=== PATIENT | female | born 1985 | race Caucasian/White ===

== ENCOUNTER 2016-06-04 18:32 | Emergency (ER) | payer OTHER ==
[2016-06-04 18:37] VITALS: BP 129/72; PULSE 104; RESP 16; TEMP 97.5
[2016-06-04] MEDS ORDERED: MORPHINE SULFATE 10 MG/ML SYRINGE IM STA (18:55)
--- NOTE | 2016-06-04 19:00 | ED ---
Fall HPI - General Chief Complaint: Fall Stated Complaint: FALL, BACK INJURY Time Seen by Provider: 06/04/16 18:45 Source: patient, RN notes reviewed Mode of arrival: ambulatory - History of Present Illness Initial Comments: Patient is a 30-year-old female presents to the emergency room for evaluation of low back pain. Patient states she got out of bed this morning and accidentally fell landing on her low back. Patient states she has a history of chronic low back pain. Patient states she usually takes [place], baclofen 800 mg ibuprofen for pain. Patient states she is having increased back pain after the fall. Patient states pain is more on her left side that radiates down her left leg. Patient denies numbness or tingling in her foot. Patient denies saddle anesthesia. Patient denies urinary or fecal incontinence. Patient states her at home pain medications are not helping. Patient denies any other injuries during incident. Patient denies head trauma, loss consciousness, neck pain. Patient states pain is worse when she is lying flat or standing up. - Related Data Home Medications Medication Instructions Recorded Confirmed Baclofen [Lioresal] 5 mg PO TID PRN 06/04/16 06/04/16 HYDROcodone/APAP 5-325MG [[place] 1 tab PO TID PRN 06/04/16 06/04/16 5-325] Ibuprofen [Motrin] 800 mg PO TID PRN 06/04/16 06/04/16 Allergies Allergy/AdvReac Type Severity Reaction Status Date / Time No Known Allergies Allergy Verified 06/04/16 18:55 Review of Systems ROS Statement: Those systems with pertinent positive or pertinent negative responses have been documented in the HPI. ROS Other: All systems not noted in ROS Statement are negative. Past Medical History Past Medical History: No Reported History Additional Past Medical History / Comment(s): Back Pain History of Any Multi-Drug Resistant Organisms: None Reported Past Surgical History: Section, Tubal Ligation Past Psychological History: No Psychological Hx Reported Smoking Status: Current every day smoker Past Alcohol Use History: Occasional Past Drug Use History: None Reported General Exam - General Exam Comments Initial Comments: Sitting on exam bed in no acute distress. Limitations: no limitations General appearance: alert, in no apparent distress Head exam: Present: atraumatic, normocephalic, normal inspection Eye exam: Present: normal appearance ENT exam: Present: normal exam Neck exam: Present: normal inspection Respiratory exam: Present: normal lung sounds bilaterally. Absent: respiratory distress Cardiovascular Exam: Present: regular rate, normal rhythm, normal heart sounds Back exam: Present: paraspinal tenderness (Left lumbosacral), vertebral tenderness (Lumbosacral) Neurological exam: Present: alert, oriented X3, CN II-XII intact Psychiatric exam: Present: normal affect, normal mood Skin exam: Present: warm, dry, intact, normal color. Absent: rash Course Vital Signs 06/04/16 18:34 Temperature 97.5 F L Pulse Rate 104 H Respiratory 16 Rate Blood Pressure 129/72 O2 Sat by Pulse 100 Oximetry Medical Decision Making - Medical Decision Making Patient is a 30-year-old female presents to the emergency room for evaluation of low back pain after fall. Lumbosacral x-ray shows no acute findings. Patient was given medication here for pain. Patient can continue taking at home pain medications as needed. Advised patient to follow-up with her supervisor paint roller covers if symptoms are not improving. Patient states she has an MRI scheduled for 06/12/16. Patient states she understands everything that was discussed with her. Return parameters discussed. Case discussed with Dr. Wilkins. - Radiology Data Radiology results: report reviewed, image reviewed Disposition Clinical Impression: Fall, Acute exacerbation of chronic low back pain Disposition: HOME SELF-CARE Condition: Good Instructions: Acute Low Back Pain (ED) Additional Instructions: Continue taking at home pain medications as needed. Please follow-up with supervisor paint roller covers for reevaluation in 24-48 hours. Warm moist heat. If any new symptom arises or symptoms worsen, return to ER as soon as possible. Referrals: Caroline Servin MD [Primary Care Provider] - 1-2 days Time of Disposition: 19:29
--- NOTE | 2016-06-04 19:16 | XR ---
EXAMINATION TYPE: XR lumbosacral spine min 4V DATE OF EXAM: 06/04/2016 7:04 PM COMPARISON: 02/22/2016 HISTORY: Chronic low back pain. Fall. TECHNIQUE: 5 views FINDINGS: The lumbar vertebra have normal alignment. There is slight narrowing of L5-S1 disc space. T here is a rudimentary S1-S2 disc. Sacroiliac joints are normal. Posterior elements are intact. IMPRESSION: No fracture. Minimal disc space narrowing at L5-S1. No change.
== END 2016-06-04 19:43 | disposition home or self-care (01) ==
LOC: EC 18:32
DX: M54.5 Low back pain (principal); G89.29 Other chronic pain; W06.XXXA Fall from bed, initial encounter; F17.200 Nicotine dependence, unspecified, uncomplicated
CPT/HCPCS: 99284; 96372; 72110; J2270

== ENCOUNTER → 2016-06-12 | Outpatient (CLI) | payer OTHER ==
--- NOTE | 2016-06-12 07:50 | MR ---
EXAMINATION TYPE: MR lumbar spine wo con DATE OF EXAM: 06/12/2016 7:16 AM COMPARISON: NONE HISTORY: Low back pain CONTRAST: 0 mL intravenous . TECHNIQUE: Multiplanar, multisequence images of the lumbar spine were acquired. FINDINGS: For purposes of this examination the lowest disc levels labeled L5-S1. L5-S1: There is loss of disc height to this level. There is no residual disc bulge or focal disc sunil iation. No spinal canal stenosis. No foraminal stenosis. . L4-L5: There is a very large left paracentral left lateral disc herniation. This is displacing and co mpressing the exiting left L5 nerve root. Correlate with radicular symptoms. This has some extension into the inferior most foramen near the orifice. No contact with the exiting nerve root within the fo ramen is evident. There is some displacement of the thecal sac towards the right. AP spinal canal st enosis is not present. The right exiting nerve root appears normal without contact or displacement. N eural foramen are patent.. L3-L4: No significant disc bulge or disc herniation. No spinal canal stenosis. No foraminal stenosi s. Mild facet hypertrophy is present.. L2-L3: No significant disc bulge or disc herniation. No spinal canal stenosis. No foraminal stenosi s. . L1-L2: No significant disc bulge or disc herniation. No spinal canal stenosis. No foraminal stenosi s. . T12-L1: No significant disc bulge or disc herniation. No spinal canal stenosis. No foraminal stenos is. . Cord terminates at the L1 level. Previous disc bulge has significantly increased over the interval. IMPRESSION: 1. There is been interval formation of a large L4-L5 disc herniation into the left paracentral canal displacing and compressing the exiting L5 nerve root. Some displacement of the thecal sac towards the right is evident.
== END | disposition home or self-care (01) ==
LOC: RADMRIMAIN 06:41
PROVIDERS: ATTEND Psychiatry & Neurology Pain Medicine
DX: M51.26 Other intervertebral disc displacement, lumbar region (principal)
CPT/HCPCS: 72148

== ENCOUNTER 2016-08-29 23:20 | Emergency (ER) | payer OTHER ==
[2016-08-30] MEDS ORDERED: ONDANSETRON 4 MG/2 ML VIAL IVP STA (00:13)
[2016-08-30] MEDS ORDERED: SODIUM CHLORIDE 0.9% 500 ML IV STA (00:13)
[2016-08-30] MEDS ORDERED: HYDROmorphone 1 MG/ML 1 ML SYRINGE IVP STA ×2 (00:13→00:45)
--- NOTE | 2016-08-30 00:19 | ED ---
Abdominal Pain HPI - General Chief Complaint: Abdominal Pain Stated Complaint: flank & abdominal pain Time Seen by Provider: 08/30/16 00:09 Source: patient Mode of arrival: ambulatory Limitations: no limitations - History of Present Illness Initial Comments: 30-year-old female patient presents to emergency department today for complaints of right lower quadrant abdominal pain. Patient states it started today around noon. Patient describes the pain as an intense pressure. She denies any radiation to her back. She is nauseated but not has not had any vomiting. She denies any known fever or chills. Denies any hematuria, dysuria , urinary urgency or urinary frequency. Denies any constipation, diarrhea, weakness, or dizziness. She did undergo a lumbar laminectomy 2 weeks ago. Patient has had tubal ligation denies any chance of . She reports a history of ovarian cysts and states pain feels similar to when she had that in the past. - Related Data Home Medications Medication Instructions Recorded Confirmed Baclofen [Lioresal] 10 mg PO TID PRN 06/04/16 08/29/16 HYDROcodone/APAP 5-325MG [[place] 1 tab PO TID PRN 06/04/16 08/29/16 5-325] Previous Rx's Medication Instructions Recorded Ondansetron Odt [Zofran Odt] 4 mg PO Q8HR PRN #10 tab 08/30/16 Allergies Allergy/AdvReac Type Severity Reaction Status Date / Time No Known Allergies Allergy Verified 08/29/16 23:43 Review of Systems ROS Statement: Those systems with pertinent positive or pertinent negative responses have been documented in the HPI. ROS Other: All systems not noted in ROS Statement are negative. Past Medical History Past Medical History: No Reported History Additional Past Medical History / Comment(s): Back Pain History of Any Multi-Drug Resistant Organisms: None Reported Past Surgical History: Back Surgery, Section, Tubal Ligation Past Psychological History: No Psychological Hx Reported Smoking Status: Current every day smoker Past Alcohol Use History: Occasional Past Drug Use History: None Reported General Exam Limitations: no limitations General appearance: alert, in no apparent distress Head exam: Present: atraumatic, normocephalic, normal inspection Eye exam: Present: normal appearance, PERRL, EOMI. Absent: scleral icterus, conjunctival injection, periorbital swelling ENT exam: Present: normal exam, normal oropharynx, mucous membranes moist Respiratory exam: Present: normal lung sounds bilaterally. Absent: respiratory distress, wheezes, rales, rhonchi, stridor Cardiovascular Exam: Present: normal rhythm, tachycardia, normal heart sounds. Absent: systolic murmur, diastolic murmur, rubs, gallop, clicks GI/Abdominal exam: Present: soft, tenderness (Mild right upper quadrant tenderness. Moderate right lower quadrant tenderness.), normal bowel sounds. Absent: distended, guarding, rebound, rigid Back exam: Present: normal inspection, CVA tenderness (R), other (Lumbar incision is healing, well approximated without any redness, drainage, or swelling.). Absent: CVA tenderness (L) Neurological exam: Present: alert, oriented X3, CN II-XII intact Psychiatric exam: Present: normal affect, normal mood Skin exam: Present: warm, dry, intact, normal color. Absent: rash Course Vital Signs 08/29/16 23:36 Temperature 99 F Pulse Rate 104 H Respiratory 22 Rate Blood Pressure 134/84 O2 Sat by Pulse 97 Oximetry - Reevaluation(s) Reevaluation #1: 08/30/16 00:44 Reevaluated the patient at this time. She states pain did lessen with the pain medication but is now starting to return. Patient remains tender to the right lower quadrant. In light of her recent surgery and tenderness we will do a computed tomography scan at this time. Patient will be given additional dose of pain medication. Medical Decision Making - Medical Decision Making 30-year-old female patient presented to emergency department today for complaints of right lower quadrant abdominal pain. Labs and urinalysis are unremarkable. CT of the abdomen and pelvis did not show any acute abnormalities. At this time patient be discharged home to continue home pain medications. She is instructed to follow-up with her primary care physician or ENGINE REPAIR SUPERVISOR in one to 2 days for recheck. Patient instructed to return for any new, worsening, or concerning symptoms. - Lab Data Result diagrams: 08/30/16 00:10 08/30/16 00:10 Lab Results 08/29/16 08/30/16 08/30/16 Range/Units 23:45 00:10 00:10 WBC 10.2 (3.8-10.6) k/uL RBC 4.31 (3.80-5.40) m/uL Hgb 14.3 (11.4-16.0) gm/dL Hct 43.4 (34.0-46.0) % MCV 100.9 H (80.0-100.0) fL MCH 33.2 (25.0-35.0) pg MCHC 32.9 (31.0-37.0) g/dL RDW 14.0 (11.5-15.5) % Plt Count 299 (150-450) k/uL Neutrophils % 72 % Lymphocytes % 18 % Monocytes % 4 % Eosinophils % 4 % Basophils % 1 % Neutrophils # 7.4 (1.3-7.7) k/uL Lymphocytes # 1.8 (1.0-4.8) k/uL Monocytes # 0.4 (0-1.0) k/uL Eosinophils # 0.4 (0-0.7) k/uL Basophils # 0.1 (0-0.2) k/uL Macrocytosis Slight Sodium 140 (137-145) mmol/L Potassium 4.1 (3.5-5.1) mmol/L Chloride 104 (98-107) mmol/L Carbon Dioxide 26 (22-30) mmol/L Anion Gap 10 mmol/L BUN 10 (7-17) mg/dL Creatinine 0.65 (0.52-1.04) mg/dL Est GFR (MDRD) Af Amer >60 (>60 ml/min/1.73 sqM) Est GFR (MDRD) Non-Af >60 (>60 ml/min/1.73 sqM) Glucose 109 H (74-99) mg/dL Calcium 9.2 (8.4-10.2) mg/dL Total Bilirubin 0.4 (0.2-1.3) mg/dL AST 19 (14-36) U/L ALT 24 (9-52) U/L Alkaline Phosphatase 110 (38-126) U/L Total Protein 6.7 (6.3-8.2) g/dL Albumin 4.0 (3.5-5.0) g/dL Amylase 68 (30-110) U/L Lipase 96 (23-300) U/L Urine Color Dark Yellow Urine Appearance Cloudy H (Clear) Urine pH 6.0 (5.0-8.0) Ur Specific [place] 1.026 (1.001-1.035) Urine Protein Trace H (Negative) Urine Glucose (UA) Negative (Negative) Urine Ketones Trace H (Negative) Urine Blood Negative (Negative) Urine Nitrite Negative (Negative) Urine Bilirubin Negative (Negative) Urine Urobilinogen 3.0 (<2.0) mg/dL Ur Leukocyte Esterase Negative (Negative) Urine RBC 1 (0-5) /hpf Urine WBC 1 (0-5) /hpf Ur Squamous Epith Cells 8 H (0-4) /hpf Urine Mucus Moderate H (None) /hpf - Radiology Data Radiology results: report reviewed CT of the abdomen and pelvis with contrast impression shows no acute abnormalities. Disposition Clinical Impression: Abdominal pain Disposition: HOME SELF-CARE Condition: Stable Instructions: Abdominal Pain (ED) Additional Instructions: Take pain medication as directed. Follow-up with primary care physician or OB/ [facility] in one to 2 days for recheck. Return for any new, worsening, or concerning symptoms. Prescriptions: Ondansetron Odt [Zofran Odt] 4 mg PO Q8HR PRN #10 tab PRN Reason: Nausea Referrals: Caroline Servin MD [Primary Care Provider] - 1-2 days Time of Disposition: 01:33
[2016-08-30 00:25] LABS: Basophils # (A) 0.1 k/uL (0-0.2); Basophils % (A) 1 %; CH 33.5; CHCM 33.4; Eosinophils # (A) 0.4 k/uL (0-0.7); Eosinophils % (A) 4 %; HCT 43.4 % (34.0-46.0); HDW 2.89; HGB 14.3 gm/dL (11.4-16.0); Luc # (Auto) 0.21; Luc % (Auto) 2; Lymphocytes # (A) 1.8 k/uL (1.0-4.8); Lymphocytes % (A) 18 %; MCH 33.2 pg (25.0-35.0); MCHC 32.9 g/dL (31.0-37.0); MCV 100.9 fL (80.0-100.0); Macrocytosis Slight; Mean Platelet Volume 7.1; Monocytes # (A) 0.4 k/uL (0-1.0); Monocytes % (A) 4 %; Neutrophils # (A) 7.4 k/uL (1.3-7.7); Neutrophils % (A) 72 %; RBC 4.31 m/uL (3.80-5.40); WBC 10.2 k/uL (3.8-10.6); WBC (Perox) 10.01
[2016-08-30 00:26] LABS: Appearance,Urine Cloudy (Clear); Bilirubin,Urine Negative (Negative); Glucose,Urine (UA) Negative (Negative); Ketones,Urine Trace (Negative); Leukocyte Esterase,Urine Negative (Negative); Mucus,Urine Moderate /hpf; Nitrite,Urine Negative (Negative); Particle Count 8155; Protein,Urine Trace (Negative); RBC,Urine 1 /hpf (0-5); Specific Gravity,Urine 1.026 (1.001-1.035); Squamous Epithelial Cell,Urine 8 /hpf (0-4); UA Billing (MACRO vs. MICRO) MICRO; WBC,Urine 1 /hpf (0-5)
[2016-08-30 00:33] LABS: ALT 24 U/L (9-52); AST 19 U/L (14-36); Alkaline Phosphatase 110 U/L (38-126); Amylase 68 U/L (30-110); Anion Gap 10 mmol/L; Blood Urea Nitrogen 10 mg/dL (7-17); Calcium 9.2 mg/dL (8.4-10.2); Carbon Dioxide 26 mmol/L (22-30); Chloride 104 mmol/L (98-107); Glucose 109 mg/dL (74-99); Non-African American GFR(MDRD) >60 (>60 ml/min/1.73 sqM); Potassium 4.1 mmol/L (3.5-5.1); Sodium 140 mmol/L (137-145); Total Bilirubin 0.4 mg/dL (0.2-1.3); Total Protein 6.7 g/dL (6.3-8.2)
[2016-08-30] MEDS ORDERED: RX INFO: IV CONTRAST WAS GIVEN 1 EACH MISC MISCELLANE PRN (00:43)
--- NOTE | 2016-08-30 00:48 | XR ---
EXAM: XR Abdomen, 1 View. CLINICAL HISTORY: Reason: abdominal pain TECHNIQUE: Frontal supine view of the abdomen/pelvis. COMPARISON: CT abdomen/pelvis on 11/28/2015 FINDINGS: Hardware: Surgical clips in the pelvis are compatible with prior tubal ligation. Abdomen: Nonobstructive bowel gas pattern. Moderate stool throughout the colon and rectum. No free air. Bones: Normal. Soft tissues: Normal. IMPRESSION: Nonobstructive bowel gas pattern with moderate stool burden.
[2016-08-30] MEDS ORDERED: SODIUM CHLORIDE 0.9% 500 ML IV ONE (01:06)
--- NOTE | 2016-08-30 01:18 | CT ---
EXAM: CT Abdomen and Pelvis With Intravenous Contrast. CLINICAL HISTORY: Reason: Pain. history of , tubal ligation, back surgery TECHNIQUE: Axial computed tomography images of the abdomen and pelvis with intravenous contrast. CTDI is 25.90 mGy and DLP is 934.90 mGy-cm This CT exam was performed using one or more of the following dose reduction techniques: automated exposure control, adjustment of the mA and/or kV according to patient size, and/or use of iterative reconstruction technique. COMPARISON: CT abdomen/pelvis on 11/28/2015 FINDINGS: Lower thorax: Mild dependent atelectasis bilaterally. ABDOMEN: Liver: Unremarkable. No mass. Gallbladder and bile ducts: Decompressed gallbladder. No calcified stones. No ductal dilation. Pancreas: Unremarkable. No mass. No ductal dilation. Spleen: Unremarkable. No splenomegaly. Adrenals: Unremarkable. No mass. Kidneys and ureters: Unremarkable. No solid mass. No hydronephrosis. Stomach and bowel: Mild diverticulosis without evidence of diverticulitis. Hyperdensity in the stomach may represent a pill. No obstruction. Appendix: No findings to suggest acute appendicitis. PELVIS: Bladder: Underdistended bladder. Reproductive: Postsurgical changes of tubal ligation. Stable prominence of the uterine/ovarian veins. ABDOMEN and PELVIS: Intraperitoneal space: Unremarkable. No free air. No significant fluid collection. Bones/joints: No acute fracture. No dislocation. Soft tissues: Tiny fat-containing umbilical hernia. Dependent edema in the posterior soft tissues. Vasculature: See above. Lymph nodes: Unremarkable. No enlarged lymph nodes. IMPRESSION: No acute findings.
[2016-08-30 01:57] VITALS: BP 120/76; PULSE 80; RESP 18; TEMP 97.6
== END 2016-08-30 02:05 | disposition home or self-care (01) ==
LOC: EC 23:20
DX: R10.31 Right lower quadrant pain (principal); R11.0 Nausea; F17.200 Nicotine dependence, unspecified, uncomplicated; Z87.42 Personal history of other diseases of the female genital tract; Z98.51 Tubal ligation status
CPT/HCPCS: 99284; 96374; 96375; 96376; 96361 ×2; 36415; 80053; 82150; 83690; 85025; 81001; 74000; 74177; J2405; J1170; Q9967

== ENCOUNTER 2016-09-16 21:51 | Emergency (ER) | payer OTHER ==
[2016-09-16 21:59] VITALS: RESP 18
[2016-09-16] MEDS ORDERED: SODIUM CHLORIDE 0.9% 1,000 ML IV STA (22:00)
[2016-09-16] MEDS ORDERED: MORPHINE SULFATE 4 MG/ML SYRINGE IV STA (22:25)
[2016-09-16] MEDS ORDERED: KETOROLAC 30 MG/ML 1 ML VIAL IVP STA (22:25)
[2016-09-16 22:28] LABS: Appearance,Urine Clear (Clear); Basophils # (A) 0.1 k/uL (0-0.2); Basophils % (A) 1 %; Bilirubin,Urine Negative (Negative); CH 32.8; CHCM 33.8; Eosinophils # (A) 0.2 k/uL (0-0.7); Eosinophils % (A) 2 %; Glucose,Urine (UA) Negative (Negative); HCT 47.8 % (34.0-46.0); HDW 2.87; Ketones,Urine Negative (Negative); Leukocyte Esterase,Urine Negative (Negative); Luc # (Auto) 0.14; Luc % (Auto) 1; Lymphocytes # (A) 2.1 k/uL (1.0-4.8); Lymphocytes % (A) 21 %; MCH 32.7 pg (25.0-35.0); MCHC 33.5 g/dL (31.0-37.0); MCV 97.6 fL (80.0-100.0); Mean Platelet Volume 6.7; Monocytes # (A) 0.4 k/uL (0-1.0); Monocytes % (A) 4 %; Neutrophils # (A) 7.4 k/uL (1.3-7.7); Neutrophils % (A) 72 %; Nitrite,Urine Negative (Negative); Protein,Urine Negative (Negative); RDW 13.3 % (11.5-15.5); Specific Gravity,Urine 1.006 (1.001-1.035); UA Billing (MACRO vs. MICRO) CHEM; Urobilinogen,Urine <2.0 mg/dL (<2.0); WBC 10.2 k/uL (3.8-10.6); WBC (Perox) 10.13
--- NOTE | 2016-09-16 22:29 | ED ---
Abdominal Pain HPI - General Chief Complaint: Abdominal Pain Stated Complaint: Abd Pain Time Seen by Provider: 09/16/16 21:59 Source: patient Mode of arrival: ambulatory Limitations: no limitations - History of Present Illness Initial Comments: This patient is a 30-year-old woman who presents with the acute onset of abdominal pain about 1-2 hours ago while she was sitting. The patient states that it was a sensation of a rubber band snapping. She rates the pain constant , 9 out of 10, and states that there are no worsening or relieving factors. She states this feels identical to previous episodes of ovarian cyst rupturing that she had had. Patient states that the pain was so severe she initially had some nausea. She states that that has cleared up she denies any other associated symptoms. The patient does state that she had just started her menstrual cycle, which seems otherwise normal. Patient denies any previous vaginal discharge. Patient has had no vomiting or change in bowel movements. She had not noted any urinary symptoms. No associated fever or chills. No chest symptoms. No radiation of the pain distally into the legs no radiation to the back. MD Complaint: abdominal pain Onset/Timin -: hour(s) Location: RLQ Radiation: none Migration to: no migration Severity scale (1-10): 9 Quality: sharp (Like a rubber band snapping) Consistency: constant Improves With: nothing Worsens With: nothing Associated Symptoms: nausea - Related Data Home Medications Medication Instructions Recorded Confirmed Baclofen [Lioresal] 10 mg PO TID PRN 06/04/16 09/16/16 HYDROcodone/APAP 7.5-325MG [[place] 1 tab PO TID PRN 09/16/16 09/16/16 7.5-325] Previous Rx's Medication Instructions Recorded Hydrocodone/Acetaminophen [[place] 1 each PO Q6HR PRN #20 tab 09/17/16 5-325] Allergies Allergy/AdvReac Type Severity Reaction Status Date / Time No Known Allergies Allergy Verified 09/16/16 22:08 Review of Systems ROS Statement: Those systems with pertinent positive or pertinent negative responses have been documented in the HPI. ROS Other: All systems not noted in ROS Statement are negative. Constitutional: Denies: fever, chills Respiratory: Denies: cough, dyspnea Cardiovascular: Denies: chest pain, palpitations, edema, syncope Gastrointestinal: Reports: as per HPI, abdominal pain, nausea. Denies: vomiting , diarrhea, constipation, melena, hematochezia Genitourinary: Denies: dysuria, frequency, hematuria, discharge, abnormal menses Musculoskeletal: Denies: back pain Skin: Denies: rash Neurological: Denies: headache, weakness, numbness Hematological/Lymphatic: Denies: easy bleeding Past Medical History Past Medical History: No Reported History Additional Past Medical History / Comment(s): Back Pain ovarian cysts History of Any Multi-Drug Resistant Organisms: None Reported Past Surgical History: Back Surgery, Section, Tubal Ligation Past Psychological History: No Psychological Hx Reported Smoking Status: Current every day smoker Past Alcohol Use History: Occasional Past Drug Use History: None Reported General Exam Limitations: no limitations General appearance: alert, in no apparent distress Head exam: Present: atraumatic, normocephalic Eye exam: Present: normal appearance. Absent: scleral icterus, conjunctival injection ENT exam: Present: normal oropharynx Neck exam: Present: normal inspection Respiratory exam: Present: normal lung sounds bilaterally. Absent: respiratory distress, wheezes, rales, rhonchi, stridor Cardiovascular Exam: Present: regular rate, normal rhythm, normal heart sounds. Absent: systolic murmur, diastolic murmur, rubs, gallop GI/Abdominal exam: Present: soft, normal bowel sounds. Absent: distended, tenderness, guarding, rebound, rigid, mass, pulsatile mass, hernia Extremities exam: Present: normal inspection, normal capillary refill. Absent: pedal edema, calf tenderness Back exam: Present: normal inspection. Absent: CVA tenderness (R), CVA tenderness (L) Neurological exam: Present: alert Skin exam: Present: warm, dry, intact, normal color. Absent: rash Course Vital Signs 09/16/16 09/17/16 21:56 00:05 Temperature 97.5 F L 98.1 F Pulse Rate 118 H 98 Respiratory 18 18 Rate Blood Pressure 122/62 117/68 O2 Sat by Pulse 99 100 Oximetry Medical Decision Making - Lab Data Result diagrams: 09/16/16 22:15 09/16/16 22:15 Lab Results 09/16/16 09/16/16 09/16/16 Range/Units 22:15 22:15 22:15 WBC 10.2 (3.8-10.6) k/uL RBC 4.90 (3.80-5.40) m/uL Hgb 16.0 (11.4-16.0) gm/dL Hct 47.8 H (34.0-46.0) % MCV 97.6 (80.0-100.0) fL MCH 32.7 (25.0-35.0) pg MCHC 33.5 (31.0-37.0) g/dL RDW 13.3 (11.5-15.5) % Plt Count 305 (150-450) k/uL Neutrophils % 72 % Lymphocytes % 21 % Monocytes % 4 % Eosinophils % 2 % Basophils % 1 % Neutrophils # 7.4 (1.3-7.7) k/uL Lymphocytes # 2.1 (1.0-4.8) k/uL Monocytes # 0.4 (0-1.0) k/uL Eosinophils # 0.2 (0-0.7) k/uL Basophils # 0.1 (0-0.2) k/uL Sodium 140 (137-145) mmol/L Potassium 4.3 (3.5-5.1) mmol/L Chloride 106 (98-107) mmol/L Carbon Dioxide 23 (22-30) mmol/L Anion Gap 11 mmol/L BUN 7 (7-17) mg/dL Creatinine 0.60 (0.52-1.04) mg/dL Est GFR (MDRD) Af Amer >60 (>60 ml/min/1.73 sqM) Est GFR (MDRD) Non-Af >60 (>60 ml/min/1.73 sqM) Glucose 99 (74-99) mg/dL Plasma Lactic Acid Frank (0.7-2.0) mmol/L Calcium 9.5 (8.4-10.2) mg/dL Total Bilirubin 0.3 (0.2-1.3) mg/dL AST 25 (14-36) U/L ALT 32 (9-52) U/L Alkaline Phosphatase 102 (38-126) U/L Total Protein 7.1 (6.3-8.2) g/dL Albumin 4.0 (3.5-5.0) g/dL Amylase 47 (30-110) U/L Lipase 47 (23-300) U/L Urine Color Yellow Urine Appearance Clear (Clear) Urine pH 7.0 (5.0-8.0) Ur Specific [place] 1.006 (1.001-1.035) Urine Protein Negative (Negative) Urine Glucose (UA) Negative (Negative) Urine Ketones Negative (Negative) Urine Blood Negative (Negative) Urine Nitrite Negative (Negative) Urine Bilirubin Negative (Negative) Urine Urobilinogen <2.0 (<2.0) mg/dL Ur Leukocyte Esterase Negative (Negative) 09/16/16 Range/Units 22:15 WBC (3.8-10.6) k/uL RBC (3.80-5.40) m/uL Hgb (11.4-16.0) gm/dL Hct (34.0-46.0) % MCV (80.0-100.0) fL MCH (25.0-35.0) pg MCHC (31.0-37.0) g/dL RDW (11.5-15.5) % Plt Count (150-450) k/uL Neutrophils % % Lymphocytes % % Monocytes % % Eosinophils % % Basophils % % Neutrophils # (1.3-7.7) k/uL Lymphocytes # (1.0-4.8) k/uL Monocytes # (0-1.0) k/uL Eosinophils # (0-0.7) k/uL Basophils # (0-0.2) k/uL Sodium (137-145) mmol/L Potassium (3.5-5.1) mmol/L Chloride (98-107) mmol/L Carbon Dioxide (22-30) mmol/L Anion Gap mmol/L BUN (7-17) mg/dL Creatinine (0.52-1.04) mg/dL Est GFR (MDRD) Af Amer (>60 ml/min/1.73 sqM) Est GFR (MDRD) Non-Af (>60 ml/min/1.73 sqM) Glucose (74-99) mg/dL Plasma Lactic Acid [place] 1.6 (0.7-2.0) mmol/L Calcium (8.4-10.2) mg/dL Total Bilirubin (0.2-1.3) mg/dL AST (14-36) U/L ALT (9-52) U/L Alkaline Phosphatase (38-126) U/L Total Protein (6.3-8.2) g/dL Albumin (3.5-5.0) g/dL Amylase (30-110) U/L Lipase (23-300) U/L Urine Color Urine Appearance (Clear) Urine pH (5.0-8.0) Ur Specific [place] (1.001-1.035) Urine Protein (Negative) Urine Glucose (UA) (Negative) Urine Ketones (Negative) Urine Blood (Negative) Urine Nitrite (Negative) Urine Bilirubin (Negative) Urine Urobilinogen (<2.0) mg/dL Ur Leukocyte Esterase (Negative) Disposition Clinical Impression: Abdominal pain Disposition: HOME SELF-CARE Condition: Good Instructions: Abdominal Pain (ED) Prescriptions: Hydrocodone/Acetaminophen [[place] 5-325] 1 each PO Q6HR PRN #20 tab PRN Reason: Pain Referrals: Caroline Servin MD [Primary Care Provider] - 1-2 days Lora Elena DO [Doctor of Osteopathic Medicine] - 1-2 days
[2016-09-16 22:38] LABS: ALT 32 U/L (9-52); AST 25 U/L (14-36); Alkaline Phosphatase 102 U/L (38-126); Amylase 47 U/L (30-110); Anion Gap 11 mmol/L; Blood Urea Nitrogen 7 mg/dL (7-17); Calcium 9.5 mg/dL (8.4-10.2); Carbon Dioxide 23 mmol/L (22-30); Chloride 106 mmol/L (98-107); Glucose 99 mg/dL (74-99); Non-African American GFR(MDRD) >60 (>60 ml/min/1.73 sqM); Potassium 4.3 mmol/L (3.5-5.1); Sodium 140 mmol/L (137-145); Total Bilirubin 0.3 mg/dL (0.2-1.3); Total Protein 7.1 g/dL (6.3-8.2)
[2016-09-16] MEDS ORDERED: HYDROmorphone 1 MG/ML 1 ML SYRINGE IVP STA (23:39)
[2016-09-17 00:56] VITALS: BP 113/73; PULSE 87; TEMP 97.8
== END 2016-09-17 00:55 | disposition home or self-care (01) ==
LOC: EC 21:51
DX: R10.31 Right lower quadrant pain (principal); F17.200 Nicotine dependence, unspecified, uncomplicated
CPT/HCPCS: 36415; 80053; 82150; 83605; 83690; 85025; 81003; 99284; 96374; 96375 ×2; 96361; J2270; J1885; J1170

== ENCOUNTER 2016-12-03 19:56 | Emergency (ER) | payer OTHER ==
[2016-12-03 20:15] VITALS: RESP 18
[2016-12-03] MEDS ORDERED: RX INFO: IV CONTRAST WAS GIVEN 1 EACH MISC MISCELLANE PRN (20:54)
[2016-12-03] MEDS ORDERED: KETOROLAC 30 MG/ML 1 ML VIAL IVP STA (20:54)
[2016-12-03] MEDS ORDERED: ONDANSETRON 4 MG/2 ML VIAL IVP STA (20:54)
[2016-12-03] MEDS ORDERED: SODIUM CHLORIDE 0.9% 1,000 ML IV ONE (20:54)
--- NOTE | 2016-12-03 20:57 | ED ---
Abdominal Pain HPI - General Chief Complaint: Abdominal Pain Stated Complaint: Abd Pain Source: patient Mode of arrival: ambulatory Limitations: no limitations - History of Present Illness Initial Comments: Patient is a 31 year old female presents for evaluation for right lower quadrant abdominal pain that started suddenly a few hours ago. Past medical history as below. Patient has a known history of ovarian cysts but states that the pain is somewhat different. No vaginal bleeding or discharge. She has a history of a tubal ligation. She states the pain is sharp in character. No radiation of pain. Is currently 7 out of 10. Nothing makes it better. Sitting makes it worse. She states the pain as a pressure sensation. Bumps in the road seemed to exacerbate her pain. She has no appetite which is unusual for her. She has associated nausea. Denies fever, chills, headache and changes of vision, URI symptoms, shortness breath, cough, chest pain, vomiting, diarrhea, pain or burning with urination. - Related Data Home Medications Medication Instructions Recorded Confirmed Baclofen [Lioresal] 10 mg PO TID PRN 06/04/16 12/03/16 HYDROcodone/APAP 7.5-325MG [[place] 1 tab PO TID PRN 09/16/16 12/03/16 7.5-325] Previous Rx's Medication Instructions Recorded Naproxen 500 mg PO BID #14 tablet 12/03/16 Ondansetron Odt [Zofran Odt] 4 mg PO Q8HR PRN #10 tab 12/03/16 Allergies Allergy/AdvReac Type Severity Reaction Status Date / Time No Known Allergies Allergy Verified 12/03/16 20:48 Review of Systems ROS Statement: Those systems with pertinent positive or pertinent negative responses have been documented in the HPI. ROS Other: All systems not noted in ROS Statement are negative. Past Medical History Past Medical History: No Reported History Additional Past Medical History / Comment(s): Back Pain ovarian cysts History of Any Multi-Drug Resistant Organisms: None Reported Past Surgical History: Back Surgery, Section, Tubal Ligation Past Psychological History: No Psychological Hx Reported Smoking Status: Current every day smoker Past Alcohol Use History: Occasional Past Drug Use History: None Reported General Exam Limitations: no limitations Course Vital Signs 12/03/16 20:12 Temperature 98.9 F Pulse Rate 84 Respiratory 18 Rate Blood Pressure 111/67 O2 Sat by Pulse 99 Oximetry Medical Decision Making - Medical Decision Making Patient is a 31 year old female resents for evaluation for right lower quadrant pain over the last 34 hours. Has a history of ovarian cysts but states that this feels different. Physical exam pending somewhat consistent with acute appendicitis. Therefore, we'll order basic labs with Toradol, Zofran, IV fluids , ultrasound, CT. 2215: Laboratory studies within normal limits. No leukocytosis. No urinary tract infection. Not . States that the pain was not improved after Toradol. We'll order 4 mg IV morphine. Awaiting imaging studies. 230: Reviewed lavatory studies. All within normal limits. Not . No urinary tract infection. Reviewed ultrasound findings. There is endometrial hyperplasia. CT findings revealed no acute inflammatory process. No appendicitis. I discussed this with the patient. She states her pain is improved after morphine. I feel comfortable letting her go home at this time with very close follow-up. Hemodynamically stable. I told her if her pain persists in the morning or in the afternoon (8-12 hours), she will need reevaluation for acute appendicitis. She voiced understanding. If she develops high fevers or change in characteristic of her pain or worsening pain she will come back for evaluation. I discussed ultrasound findings. 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 Discussed the possibility of an endometrial biopsy. Discussed further signs and symptoms on when to return to emergency department for further evaluation. Comfortable with discharge home and will follow-up. We'll discharge home with a prescription of naproxen and Zofran. Will not take any other NSAIDs with the naproxen. - Lab Data Result diagrams: 12/03/16 21:13 12/03/16 21:13 Lab Results 12/03/16 12/03/16 12/03/16 Range/Units 21:13 21:13 21:13 WBC 9.9 (3.8-10.6) k/uL RBC 4.62 (3.80-5.40) m/uL Hgb 14.7 (11.4-16.0) gm/dL Hct 42.0 (34.0-46.0) % MCV 90.9 (80.0-100.0) fL MCH 31.8 (25.0-35.0) pg MCHC 35.0 (31.0-37.0) g/dL RDW 13.5 (11.5-15.5) % Plt Count 267 (150-450) k/uL Neutrophils % 65 % Lymphocytes % 25 % Monocytes % 4 % Eosinophils % 4 % Basophils % 1 % Neutrophils # 6.4 (1.3-7.7) k/uL Lymphocytes # 2.5 (1.0-4.8) k/uL Monocytes # 0.4 (0-1.0) k/uL Eosinophils # 0.4 (0-0.7) k/uL Basophils # 0.1 (0-0.2) k/uL Sodium 140 (137-145) mmol/L Potassium 4.2 (3.5-5.1) mmol/L Chloride 106 (98-107) mmol/L Carbon Dioxide 26 (22-30) mmol/L Anion Gap 8 mmol/L BUN 9 (7-17) mg/dL Creatinine 0.63 (0.52-1.04) mg/dL Est GFR (MDRD) Af Amer >60 (>60 ml/min/1.73 sqM) Est GFR (MDRD) Non-Af >60 (>60 ml/min/1.73 sqM) Glucose 71 L (74-99) mg/dL Calcium 9.1 (8.4-10.2) mg/dL Total Bilirubin 0.3 (0.2-1.3) mg/dL AST 18 (14-36) U/L ALT 33 (9-52) U/L Alkaline Phosphatase 83 (38-126) U/L Total Protein 6.0 L (6.3-8.2) g/dL Albumin 3.5 (3.5-5.0) g/dL Urine Color Urine Appearance (Clear) Urine pH (5.0-8.0) Ur Specific [place] (1.001-1.035) Urine Protein (Negative) Urine Glucose (UA) (Negative) Urine Ketones (Negative) Urine Blood (Negative) Urine Nitrite (Negative) Urine Bilirubin (Negative) Urine Urobilinogen (<2.0) mg/dL Ur Leukocyte Esterase (Negative) Urine HCG, Qual Not Detected (Not Detectd) 12/03/16 Range/Units 21:13 WBC (3.8-10.6) k/uL RBC (3.80-5.40) m/uL Hgb (11.4-16.0) gm/dL Hct (34.0-46.0) % MCV (80.0-100.0) fL MCH (25.0-35.0) pg MCHC (31.0-37.0) g/dL RDW (11.5-15.5) % Plt Count (150-450) k/uL Neutrophils % % Lymphocytes % % Monocytes % % Eosinophils % % Basophils % % Neutrophils # (1.3-7.7) k/uL Lymphocytes # (1.0-4.8) k/uL Monocytes # (0-1.0) k/uL Eosinophils # (0-0.7) k/uL Basophils # (0-0.2) k/uL Sodium (137-145) mmol/L Potassium (3.5-5.1) mmol/L Chloride (98-107) mmol/L Carbon Dioxide (22-30) mmol/L Anion Gap mmol/L BUN (7-17) mg/dL Creatinine (0.52-1.04) mg/dL Est GFR (MDRD) Af Amer (>60 ml/min/1.73 sqM) Est GFR (MDRD) Non-Af (>60 ml/min/1.73 sqM) Glucose (74-99) mg/dL Calcium (8.4-10.2) mg/dL Total Bilirubin (0.2-1.3) mg/dL AST (14-36) U/L ALT (9-52) U/L Alkaline Phosphatase (38-126) U/L Total Protein (6.3-8.2) g/dL Albumin (3.5-5.0) g/dL Urine Color Yellow Urine Appearance Clear (Clear) Urine pH 7.0 (5.0-8.0) Ur Specific [place] 1.021 (1.001-1.035) Urine Protein Trace H (Negative) Urine Glucose (UA) Negative (Negative) Urine Ketones Negative (Negative) Urine Blood Negative (Negative) Urine Nitrite Negative (Negative) Urine Bilirubin Negative (Negative) Urine Urobilinogen 2.0 (<2.0) mg/dL Ur Leukocyte Esterase Negative (Negative) Urine HCG, Qual (Not Detectd) Disposition Clinical Impression: Abdominal pain, Endometrial hyperplasia Disposition: HOME SELF-CARE Condition: Good Instructions: Abdominal Pain (ED) Prescriptions: Naproxen 500 mg PO BID #14 tablet Ondansetron Odt [Zofran Odt] 4 mg PO Q8HR PRN #10 tab PRN Reason: Nausea Referrals: Caroline Servin MD [Primary Care Provider] - 1-2 days Paula Hendricks DO [Doctor of Osteopathic Medicine] - 1-2 days
[2016-12-03 21:27] LABS: Basophils # (A) 0.1 k/uL (0-0.2); Basophils % (A) 1 %; CH 30.8; Eosinophils # (A) 0.4 k/uL (0-0.7); Eosinophils % (A) 4 %; HDW 2.63; HGB 14.7 gm/dL (11.4-16.0); Luc # (Auto) 0.15; Luc % (Auto) 2; Lymphocytes # (A) 2.5 k/uL (1.0-4.8); Lymphocytes % (A) 25 %; MCH 31.8 pg (25.0-35.0); MCV 90.9 fL (80.0-100.0); Mean Platelet Volume 7.3; Monocytes # (A) 0.4 k/uL (0-1.0); Monocytes % (A) 4 %; Neutrophils # (A) 6.4 k/uL (1.3-7.7); Neutrophils % (A) 65 %; RBC 4.62 m/uL (3.80-5.40); RDW 13.5 % (11.5-15.5); WBC 9.9 k/uL (3.8-10.6); WBC (Perox) 10.09
[2016-12-03 21:28] LABS: Appearance,Urine Clear (Clear); Bilirubin,Urine Negative (Negative); Glucose,Urine (UA) Negative (Negative); Ketones,Urine Negative (Negative); Leukocyte Esterase,Urine Negative (Negative); Nitrite,Urine Negative (Negative); Protein,Urine Trace (Negative); Specific Gravity,Urine 1.021 (1.001-1.035); UA Billing (MACRO vs. MICRO) CHEM
[2016-12-03 21:38] LABS: ALT 33 U/L (9-52); AST 18 U/L (14-36); Alkaline Phosphatase 83 U/L (38-126); Anion Gap 8 mmol/L; Blood Urea Nitrogen 9 mg/dL (7-17); Calcium 9.1 mg/dL (8.4-10.2); Carbon Dioxide 26 mmol/L (22-30); Chloride 106 mmol/L (98-107); Glucose 71 mg/dL (74-99); Non-African American GFR(MDRD) >60 (>60 ml/min/1.73 sqM); Potassium 4.2 mmol/L (3.5-5.1); Sodium 140 mmol/L (137-145); Total Bilirubin 0.3 mg/dL (0.2-1.3)
--- NOTE | 2016-12-03 21:47 | CT ---
EXAMINATION TYPE: CT abdomen pelvis w con DATE OF EXAM: 12/03/2016 COMPARISON: 08/30/2016 HISTORY: RLQ PAIN. HX OF OVARIAN CYSTS. CT DLP: 828.0 mGycm Automated exposure control for dose reduction was used. TECHNIQUE: Helical acquisition of images was performed from the lung bases through the pelvis. CONTRAST: Performed without Oral Contrast and with IV Contrast, patient injected with 100 mL of Omnipaque 300. FINDINGS: There is mild subsegmental atelectasis at the lung bases. There is no pleural effusion. Heart size is normal. Liver spleen pancreas gallbladder appear normal. Bile ducts are not dilated. There is no adrenal mass . Kidneys show satisfactory contrast opacification. There is no hydronephrosis. There is no retroperi toneal adenopathy. Her graft there is no ascites. I see no intestinal wall thickening. There are no d ilated loops. Appendix appears normal. Bladder distends smoothly. There are surgical clips in the pelvis apparently from tubal ligation. I s ee no bony destructive process. IMPRESSION: NO EVIDENCE OF RENAL STONE OR OBSTRUCTION. NORMAL APPENDIX. NO SIGN OF ACUTE ABDOMEN AND PELVIS.
[2016-12-03] MEDS ORDERED: MORPHINE SULFATE 4 MG/ML SYRINGE IVP STA (22:15)
--- NOTE | 2016-12-03 22:31 | US ---
EXAM: US Pelvis, Transvaginal CLINICAL HISTORY: Reason: Pain TECHNIQUE: Real-time transvaginal pelvic ultrasound (complete) with image documentation. Transvaginal imaging was used for better evaluation of the endometrium and adnexa. COMPARISON: CT pelvis 08/30/2016 FINDINGS: Uterus/cervix: Uterus measures 8.3 x 4.2 x 4.9 cm. No myometrial masses identified. Endometrium is thickened measuring 1.6 cm. There is small amount of fluid within the endometrial canal as well as in the endocervical canal. Right ovary: 3.7 x 2.6 x 2.7 cm Ovaries are unremarkable bilaterally, both of which demonstrating normal Doppler vascular flow signal. No abnormal adnexal masses or cysts identified. Left ovary: 2.8 x 1.6 x 1.4 cm Free fluid: Small amount of fluid in the cul-de-sac. Bladder: Empty bladder which cannot be evaluated with this probe. IMPRESSION: Endometrial thickening measuring 1.6 cm with differential considerations including endometrial hyperplasia, endometrial polyp or possible endometrial neoplasm. Clinical correlation recommended. Small amount of free pelvic fluid which is nonspecific and may be physiologic.
[2016-12-04 00:20] VITALS: BP 102/61; PULSE 92; TEMP 98.3
== END 2016-12-04 00:15 | disposition home or self-care (01) ==
LOC: EC 19:56
DX: N85.00 Endometrial hyperplasia, unspecified (principal); R11.0 Nausea; F17.200 Nicotine dependence, unspecified, uncomplicated; Z98.51 Tubal ligation status
CPT/HCPCS: 99284; 96374; 96375 ×2; 96361; 36415; 80053; 85025; 81003; 81025; 93975; 76830; 74177; J2270; J2405; J1885; Q9967

== ENCOUNTER 2017-08-02 14:29 | Emergency (ER) | payer OTHER ==
[2017-08-02 14:39] VITALS: TEMP 98.6
[2017-08-02] MEDS ORDERED: HYDROcodone/APAP 5-325MG 1 EACH TAB PO STA (14:53)
[2017-08-02] MEDS ORDERED: KETOROLAC 30 MG/ML 1 ML VIAL IM STA (14:53)
[2017-08-02 15:16] LABS: Appearance,Urine Cloudy (Clear); Bilirubin,Urine Negative (Negative); Blood,Urine Negative (Negative); Color,Urine Yellow; Glucose,Urine (UA) Negative (Negative); Ketones,Urine Negative (Negative); Leukocyte Esterase,Urine Small (Negative); Mucus,Urine Few /hpf; Nitrite,Urine Negative (Negative); Protein,Urine Trace (Negative); RBC,Urine 2 /hpf (0-5); Specific Gravity,Urine 1.025 (1.001-1.035); Squamous Epithelial Cell,Urine 10 /hpf (0-4); WBC,Urine 11 /hpf (0-5)
[2017-08-02 15:54] VITALS: BP 104/61; PULSE 78; RESP 18
--- NOTE | 2017-08-02 15:55 | ED ---
General Adult HPI - General Chief complaint: Abdominal Pain Stated complaint: Abd pain Time Seen by Provider: 08/02/17 14:43 Source: patient, RN notes reviewed, old records reviewed Mode of arrival: ambulatory Limitations: no limitations - History of Present Illness Initial comments: This is a 31-year-old female the ER for evasive Doppler pain, patient has history of ovarian cysts, she has ever to start, denies chance of significant bleeding currently. No other fevers no nausea vomiting or diarrhea. Patient's pain is right-sided. No history of kidney stones. No blood in her urine. Patient took multiple Motrin and Tylenol with no help. Pain just started this morning - Related Data Home Medications Medication Instructions Recorded Confirmed Ibuprofen [Motrin Ib] 600 mg PO BID PRN 08/02/17 08/02/17 Allergies Allergy/AdvReac Type Severity Reaction Status Date / Time No Known Allergies Allergy Verified 08/02/17 14:44 Review of Systems ROS Statement: Those systems with pertinent positive or pertinent negative responses have been documented in the HPI. ROS Other: All systems not noted in ROS Statement are negative. Past Medical History Past Medical History: No Reported History Additional Past Medical History / Comment(s): Back Pain ovarian cysts History of Any Multi-Drug Resistant Organisms: None Reported Past Surgical History: Back Surgery, Section, Tubal Ligation Past Psychological History: No Psychological Hx Reported Smoking Status: Current every day smoker Past Alcohol Use History: Occasional Past Drug Use History: None Reported General Exam Limitations: no limitations General appearance: alert, in no apparent distress Head exam: Present: atraumatic, normocephalic, normal inspection Eye exam: Present: normal appearance, PERRL, EOMI. Absent: scleral icterus, conjunctival injection, periorbital swelling ENT exam: Present: normal exam, mucous membranes moist Neck exam: Present: normal inspection. Absent: tenderness, meningismus, lymphadenopathy Respiratory exam: Present: normal lung sounds bilaterally. Absent: respiratory distress, wheezes, rales, rhonchi, stridor Cardiovascular Exam: Present: regular rate, normal rhythm, normal heart sounds. Absent: systolic murmur, diastolic murmur, rubs, gallop, clicks GI/Abdominal exam: Present: soft, tenderness (Right lower quadrant), normal bowel sounds. Absent: distended, guarding, rebound, rigid Extremities exam: Present: normal inspection, full ROM, normal capillary refill. Absent: tenderness, pedal edema, joint swelling, calf tenderness Back exam: Present: normal inspection Neurological exam: Present: alert, oriented X3, CN II-XII intact Psychiatric exam: Present: normal affect, normal mood Skin exam: Present: warm, dry, intact, normal color. Absent: rash Course Vital Signs 08/02/17 14:38 Temperature 98.6 F Pulse Rate 118 H Respiratory 20 Rate Blood Pressure 118/82 O2 Sat by Pulse 98 Oximetry - Reevaluation(s) Reevaluation #1: 08/02/17 15:54 Patient is adequate pain control Medical Decision Making - Medical Decision Making 31 female the ER the bowel pain, history of ovarian cysts, patient has right superior pubic abdominal pain pain is controlled currently. Ovarian cyst. Patient can be discharged home - Lab Data Lab Results 08/02/17 08/02/17 Range/Units 14:58 14:58 Urine Color Yellow Urine Appearance Cloudy H (Clear) Urine pH 7.0 (5.0-8.0) Ur Specific [place] 1.025 (1.001-1.035) Urine Protein Trace H (Negative) Urine Glucose (UA) Negative (Negative) Urine Ketones Negative (Negative) Urine Blood Negative (Negative) Urine Nitrite Negative (Negative) Urine Bilirubin Negative (Negative) Urine Urobilinogen 12.0 (<2.0) mg/dL Ur Leukocyte Esterase Small H (Negative) Urine RBC 2 (0-5) /hpf Urine WBC 11 H (0-5) /hpf Ur Squamous Epith Cells 10 H (0-4) /hpf Urine Mucus Few H (None) /hpf Urine HCG, Qual Not Detected (Not Detectd) - Radiology Data Radiology results: report reviewed (Ultrasound negative), image reviewed Disposition Clinical Impression: Right ovarian cyst, Pelvic pain Disposition: HOME SELF-CARE Condition: Good Instructions: Ovarian Cyst (ED) Referrals: Caroline Servin MD [Primary Care Provider] - 1-2 days
--- NOTE | 2017-08-02 15:58 | US ---
EXAMINATION TYPE: US transvaginal DATE OF EXAM: 08/02/2017 COMPARISON: NONE CLINICAL HISTORY: Pain. RLQ pain, , Tubal ligation TECHNIQUE: Transvaginal (TV). Date of LMP: 07/19/2017, EXAM MEASUREMENTS: Uterus: 7.9 x 4.4 x 4.0 cm Endometrial Stripe: 1.4 cm Right Ovary: 3.3 x 2.5 x 2.0 cm 1. Uterus: Anteverted wnl 2. Endometrium: Appears upper limits of normal. 3. Right Ovary: Follicles seen 4. Left Ovary: Obscured by overlying bowel gas Spectral, color and waveform doppler imaging shows good arterial and venous flow within right ovary ; there is no evidence for ovarian torsion. 5. Bilateral Adnexa: wnl 6. Posterior cul-de-sac: Trace amount of free fluid Cervix- fluid seen within cervical canal IMPRESSION: 1. Endometrium is upper limits of normal although this can relate to the patient's phase of menses. C orrelate with beta-hCG to exclude early and decidual reaction. 2. Scant amount of free fluid within the pelvis, likely physiologic in nature. 3. Nonvisualization of the left ovary secondary to overlying bowel gas.
== END 2017-08-02 16:09 | disposition home or self-care (01) ==
LOC: EC 14:29
DX: N83.201 Unspecified ovarian cyst, right side (principal); F17.200 Nicotine dependence, unspecified, uncomplicated; Z98.51 Tubal ligation status
CPT/HCPCS: 81001; 81025; 93976; 76830; 99284; 96372; J1885

== ENCOUNTER 2017-08-07 13:25 | Emergency (ER) | payer OTHER ==
[2017-08-07] MEDS ORDERED: SODIUM CHLORIDE 0.9% 1,000 ML IV STA (14:43)
[2017-08-07] MEDS ORDERED: MORPHINE SULFATE/PF 10MG/10ML VL IVP STA (14:44)
[2017-08-07] MEDS ORDERED: ONDANSETRON 4 MG/2 ML VIAL IVP STA (14:44)
[2017-08-07] MEDS ORDERED: RX INFO: IV CONTRAST WAS GIVEN 1 EACH MISC MISCELLANE PRN (14:46)
--- NOTE | 2017-08-07 14:52 | ED ---
Abdominal Pain HPI - General Chief Complaint: Abdominal Pain Stated Complaint: abdominal pain Time Seen by Provider: 08/07/17 14:26 Source: patient Mode of arrival: ambulatory Limitations: no limitations - History of Present Illness Initial Comments: 31-year-old female patient presents to the emergency department today for complaints of right lower quadrant abdominal pain. Patient reports that her pain started on Saturday. States she was seen here and diagnosed with ovarian cyst. Patient states that her pain has continued and has become worse. She describes the pain as a constant sharp stabbing pain that radiates through to her back. She states that she has been nauseated and has had no appetite. She has been taking motrin without relief of symptoms. She denies any fevers or chills. Denies any vomiting, diarrhea, or constipation. Patient denies any recent rash, shortness breath, chest pain, abdominal pain, nausea, vomiting, diarrhea, constipation, back pain, numbness, tingling, dizziness, weakness, hematuria, dysuria, urinary urgency, urinary frequency, headache, visual changes , or any other complaints. - Related Data Home Medications Medication Instructions Recorded Confirmed Ibuprofen [Motrin Ib] 400 mg PO ONCE PRN 08/02/17 08/02/17 Previous Rx's Medication Instructions Recorded Acetaminophen-Codeine 300-30mg 1 tab PO Q6H PRN #15 tablet 08/07/17 [Tylenol #3] Allergies Allergy/AdvReac Type Severity Reaction Status Date / Time No Known Allergies Allergy Verified 08/07/17 14:13 Review of Systems ROS Statement: Those systems with pertinent positive or pertinent negative responses have been documented in the HPI. ROS Other: All systems not noted in ROS Statement are negative. Past Medical History Past Medical History: No Reported History Additional Past Medical History / Comment(s): Back Pain ovarian cysts History of Any Multi-Drug Resistant Organisms: None Reported Past Surgical History: Back Surgery, Section, Tubal Ligation Past Psychological History: No Psychological Hx Reported Smoking Status: Current every day smoker Past Alcohol Use History: Occasional Past Drug Use History: None Reported General Exam Limitations: no limitations General appearance: alert, in no apparent distress, other (This is a well- developed, well-nourished adult female patient in no acute distress. Vital signs upon presentation are temperature 98.6F, pulse 110, respirations 18, blood pressure 117/66, pulse ox 99% on room air.) Eye exam: Present: normal appearance, PERRL, EOMI. Absent: scleral icterus, conjunctival injection, periorbital swelling ENT exam: Present: normal exam, normal oropharynx, mucous membranes moist Respiratory exam: Present: normal lung sounds bilaterally. Absent: respiratory distress, wheezes, rales, rhonchi, stridor Cardiovascular Exam: Present: regular rate, normal rhythm, normal heart sounds. Absent: systolic murmur, diastolic murmur, rubs, gallop, clicks GI/Abdominal exam: Present: soft, tenderness (Right lower quadrant tenderness), normal bowel sounds. Absent: distended, guarding, rebound, rigid Neurological exam: Present: alert, oriented X3, CN II-XII intact Psychiatric exam: Present: normal affect, normal mood Skin exam: Present: warm, dry, intact, normal color. Absent: rash Course Vital Signs 08/07/17 08/07/17 08/07/17 13:31 15:12 16:45 Temperature 98.6 F 98.6 F 98.8 F Pulse Rate 110 H 98 88 Respiratory 18 16 18 Rate Blood Pressure 117/66 105/63 121/66 O2 Sat by Pulse 99 98 99 Oximetry Medical Decision Making - Medical Decision Making 31-year-old female patient presents to the emergency department today for evaluation of right lower quadrant abdominal pain. Physical examination does reveal generalized abdominal tenderness especially over the right lower quadrant. Labs reviewed and did reveal a mildly elevated white blood cell count. CT of the abdomen and pelvis was obtained and did show a cystic mass on the right ovary. Did discuss findings with the patient. She is instructed to follow-up with the [facility] for further evaluation. She is given a prescription for Tylenol No. 3 to better manage her pain. She is instructed to return here immediately for any new, worsening, or concerning symptoms. She verbalizes understanding and agrees with the plan. - Lab Data Result diagrams: 08/07/17 15:04 08/07/17 15:04 Lab Results 08/07/17 08/07/17 08/07/17 Range/Units 14:54 14:54 15:04 WBC (3.8-10.6) k/uL RBC (3.80-5.40) m/uL Hgb (11.4-16.0) gm/dL Hct (34.0-46.0) % MCV (80.0-100.0) fL MCH (25.0-35.0) pg MCHC (31.0-37.0) g/dL RDW (11.5-15.5) % Plt Count (150-450) k/uL Neutrophils % % Lymphocytes % % Monocytes % % Eosinophils % % Basophils % % Neutrophils # (1.3-7.7) k/uL Lymphocytes # (1.0-4.8) k/uL Monocytes # (0-1.0) k/uL Eosinophils # (0-0.7) k/uL Basophils # (0-0.2) k/uL Sodium 139 (137-145) mmol/L Potassium 4.4 (3.5-5.1) mmol/L Chloride 109 H (98-107) mmol/L Carbon Dioxide 23 (22-30) mmol/L Anion Gap 7 mmol/L BUN 14 (7-17) mg/dL Creatinine 0.43 L (0.52-1.04) mg/dL Est GFR (CKD-EPI)AfAm >90 (>60 ml/min/1.73 sqM) Est GFR (CKD-EPI)NonAf >90 (>60 ml/min/1.73 sqM) Glucose 87 (74-99) mg/dL Calcium 8.8 (8.4-10.2) mg/dL Total Bilirubin 0.2 (0.2-1.3) mg/dL AST 17 (14-36) U/L ALT 24 (9-52) U/L Alkaline Phosphatase 93 (38-126) U/L Total Protein 6.0 L (6.3-8.2) g/dL Albumin 3.5 (3.5-5.0) g/dL Amylase 46 (30-110) U/L Lipase 42 (23-300) U/L Urine Color Yellow Urine Appearance Clear (Clear) Urine pH 7.0 (5.0-8.0) Ur Specific [place] 1.016 (1.001-1.035) Urine Protein Negative (Negative) Urine Glucose (UA) Negative (Negative) Urine Ketones Negative (Negative) Urine Blood Negative (Negative) Urine Nitrite Negative (Negative) Urine Bilirubin Negative (Negative) Urine Urobilinogen <2.0 (<2.0) mg/dL Ur Leukocyte Esterase Negative (Negative) Urine HCG, Qual Not Detected (Not Detectd) 08/07/17 Range/Units 15:04 WBC 11.3 H (3.8-10.6) k/uL RBC 4.62 (3.80-5.40) m/uL Hgb 14.2 (11.4-16.0) gm/dL Hct 42.2 (34.0-46.0) % MCV 91.3 (80.0-100.0) fL MCH 30.7 (25.0-35.0) pg MCHC 33.6 (31.0-37.0) g/dL RDW 13.8 (11.5-15.5) % Plt Count 240 (150-450) k/uL Neutrophils % 69 % Lymphocytes % 22 % Monocytes % 4 % Eosinophils % 5 % Basophils % 1 % Neutrophils # 7.7 (1.3-7.7) k/uL Lymphocytes # 2.4 (1.0-4.8) k/uL Monocytes # 0.5 (0-1.0) k/uL Eosinophils # 0.5 (0-0.7) k/uL Basophils # 0.1 (0-0.2) k/uL Sodium (137-145) mmol/L Potassium (3.5-5.1) mmol/L Chloride (98-107) mmol/L Carbon Dioxide (22-30) mmol/L Anion Gap mmol/L BUN (7-17) mg/dL Creatinine (0.52-1.04) mg/dL Est GFR (CKD-EPI)AfAm (>60 ml/min/1.73 sqM) Est GFR (CKD-EPI)NonAf (>60 ml/min/1.73 sqM) Glucose (74-99) mg/dL Calcium (8.4-10.2) mg/dL Total Bilirubin (0.2-1.3) mg/dL AST (14-36) U/L ALT (9-52) U/L Alkaline Phosphatase (38-126) U/L Total Protein (6.3-8.2) g/dL Albumin (3.5-5.0) g/dL Amylase (30-110) U/L Lipase (23-300) U/L Urine Color Urine Appearance (Clear) Urine pH (5.0-8.0) Ur Specific [place] (1.001-1.035) Urine Protein (Negative) Urine Glucose (UA) (Negative) Urine Ketones (Negative) Urine Blood (Negative) Urine Nitrite (Negative) Urine Bilirubin (Negative) Urine Urobilinogen (<2.0) mg/dL Ur Leukocyte Esterase (Negative) Urine HCG, Qual (Not Detectd) - Radiology Data Radiology results: report reviewed, image reviewed CT of the abdomen and pelvis with contrast was obtained. Report was reviewed in its entirety. Impression by Dr. Avendaño shows appendix is normal. Correlate for possible enteritis. Cystic right adnexal masses again noted. Disposition Clinical Impression: Right ovarian cyst, Abdominal pain Disposition: HOME SELF-CARE Condition: Good Instructions: Ovarian Cyst (ED), Abdominal Pain (ED) Additional Instructions: Take medications as needed. Follow-up with your primary care physician as well as her [facility] [employer] for further evaluation. Return here immediately for any new, worsening, or concerning symptoms. Prescriptions: Acetaminophen-Codeine 300-30mg [Tylenol #3] 1 tab PO Q6H PRN #15 tablet PRN Reason: Pain Referrals: Caroline Servin MD [Primary Care Provider] - 1-2 days Time of Disposition: 16:34
[2017-08-07 15:14] LABS: Basophils # (A) 0.1 k/uL (0-0.2); Basophils % (A) 1 %; Eosinophils # (A) 0.5 k/uL (0-0.7); Eosinophils % (A) 5 %; HCT 42.2 % (34.0-46.0); HGB 14.2 gm/dL (11.4-16.0); Lymphocytes # (A) 2.4 k/uL (1.0-4.8); Lymphocytes % (A) 22 %; MCH 30.7 pg (25.0-35.0); MCHC 33.6 g/dL (31.0-37.0); MCV 91.3 fL (80.0-100.0); Mean Platelet Volume 7.1; Monocytes # (A) 0.5 k/uL (0-1.0); Monocytes % (A) 4 %; Neutrophils # (A) 7.7 k/uL (1.3-7.7); Neutrophils % (A) 69 %; Platelet Count 240 k/uL (150-450); RBC 4.62 m/uL (3.80-5.40); RDW 13.8 % (11.5-15.5); WBC 11.3 k/uL (3.8-10.6)
[2017-08-07 15:15] LABS: Appearance,Urine Clear (Clear); Bilirubin,Urine Negative (Negative); Blood,Urine Negative (Negative); Color,Urine Yellow; Glucose,Urine (UA) Negative (Negative); Ketones,Urine Negative (Negative); Leukocyte Esterase,Urine Negative (Negative); Nitrite,Urine Negative (Negative); Protein,Urine Negative (Negative); Specific Gravity,Urine 1.016 (1.001-1.035); Urobilinogen,Urine <2.0 mg/dL (<2.0)
[2017-08-07 15:27] LABS: ALT 24 U/L (9-52); AST 17 U/L (14-36); Albumin 3.5 g/dL (3.5-5.0); Alkaline Phosphatase 93 U/L (38-126); Amylase 46 U/L (30-110); Anion Gap 7 mmol/L; Blood Urea Nitrogen 14 mg/dL (7-17); Calcium 8.8 mg/dL (8.4-10.2); Carbon Dioxide 23 mmol/L (22-30); Chloride 109 mmol/L (98-107); Glucose 87 mg/dL (74-99); Lipase 42 U/L (23-300); Potassium 4.4 mmol/L (3.5-5.1); Sodium 139 mmol/L (137-145); Total Bilirubin 0.2 mg/dL (0.2-1.3)
--- NOTE | 2017-08-07 16:09 | CT ---
EXAMINATION TYPE: CT abdomen pelvis w con DATE OF EXAM: 08/07/2017 COMPARISON: Prior CT 12/03/2016 HISTORY: RLQ abd pain and nausea. CT DLP: 1779 mGycm Automated exposure control for dose reduction was used. TECHNIQUE: Helical acquisition of images from the lung bases through the pelvis have been completed. CONTRAST: Performed without Oral Contrast and with IV Contrast, patient injected with 100ml mL of Isovue 300. FINDINGS: LUNG BASES: No significant abnormality is appreciated. AORTA: No significant abnormality is appreciated. LIVER/GB: The liver shows low attenuation and is enlarged. Focal area of higher attenuation is presen t anteriorly on axial image 21 and shows a stable appearance and may represent some fatty sparing. Ga llbladder is normal. PANCREAS: No significant abnormality is seen. SPLEEN: No significant abnormality is seen. ADRENALS: No significant abnormality is seen. KIDNEYS: No significant abnormality is seen. Suspect circumaortic left renal vein. REPRODUCTIVE ORGANS: Mixed density predominantly cystic focus present in the right adnexa measures ap proximately 3.8 cm in greatest dimension. Bilateral fallopian tubal ligation clips are present, cysti c focus associated with the left ovary measures only 19 mm. Fallopian tubal ligation clip present pos terior to the bladder and anterior to the uterus. BOWEL: No significant abnormality is seen. Appendix is normal. No bowel obstruction. Fluid-filled lo ops of small bowel present, there areas of possible small bowel wall thickening. FREE AIR: No Free Air visible. ASCITES: None visible. PELVIC ADENOPATHY: None visualized. RETROPERITONEAL ADENOPATHY: No Retroperitoneal Adenopathy visible. URINARY BLADDER: No significant abnormality is seen. OSSEOUS STRUCTURES: No significant abnormality is seen. IMPRESSION: APPENDIX IS NORMAL. CORRELATE FOR POSSIBLE ENTERITIS. CYSTIC RIGHT ADNEXAL MASS IS AGAIN NOTED, PELVI C ULTRASOUND MAY BE OF BENEFIT.
[2017-08-07] MEDS ORDERED: Acetaminophen-Codeine 300-30mg TAB PO STA (16:34)
[2017-08-07 16:50] VITALS: BP 121/66; PULSE 88; RESP 18; TEMP 98.8
== END 2017-08-07 16:50 | disposition home or self-care (01) ==
LOC: EC 13:25
DX: N83.201 Unspecified ovarian cyst, right side (principal); F17.200 Nicotine dependence, unspecified, uncomplicated; Z98.51 Tubal ligation status
CPT/HCPCS: 36415; 80053; 82150; 83690; 85025; 81003; 81025; 74177; 99284; 96374; 96375; 96361 ×2; J2405; Q9967; J2270

== ENCOUNTER 2017-12-30 18:35 | Emergency (ER) | payer OTHER ==
[2017-12-30 19:01] VITALS: TEMP 98.5
[2017-12-30] MEDS ORDERED: ONDANSETRON 4 MG/2 ML VIAL IVP STA (19:35)
[2017-12-30] MEDS ORDERED: SODIUM CHLORIDE 0.9% 1,000 ML IV STA (19:35)
[2017-12-30] MEDS ORDERED: MORPHINE SULFATE 4 MG/ML SYRINGE IV STA (19:35)
--- NOTE | 2017-12-30 19:41 | ED ---
Abdominal Pain HPI - General Chief Complaint: Abdominal Pain Stated Complaint: Cyst on ovary Time Seen by Provider: 12/30/17 19:24 Source: patient Mode of arrival: ambulatory Limitations: no limitations - History of Present Illness Initial Comments: 32-year-old female patient presents to the emergency department today for complaints of pelvic pain. Pain started at approximately 4:00 this afternoon when she went from a sitting to a standing position. States that the pain was sudden onset sharp stabbing pain. She reports that the pain alternates from the right pelvic region to the left pelvic region. States the pain as a 10/10 on the pain scale. She has had pain similar in the past and she's had ovarian cysts, but this pain is the worst she has ever experienced. Patient denies any abnormal vaginal bleeding or discharge. Last menstrual period was 2 weeks ago. Patient has had tubal ligation in the past and denies any chance of . Denies any fevers or chills with this. States she is nauseated but has not vomited. Denies any constipation or diarrhea. Denies any hematuria, dysuria, urinary frequency, urinary urgency. She denies any back pain. - Related Data Home Medications Medication Instructions Recorded Confirmed Sertraline [Zoloft] 50 mg PO HS 12/30/17 12/30/17 Previous Rx's Medication Instructions Recorded Ibuprofen [Motrin] 600 mg PO Q8HR PRN #30 tab 12/30/17 Allergies Allergy/AdvReac Type Severity Reaction Status Date / Time No Known Allergies Allergy Verified 12/30/17 19:29 Review of Systems ROS Statement: Those systems with pertinent positive or pertinent negative responses have been documented in the HPI. ROS Other: All systems not noted in ROS Statement are negative. Past Medical History Past Medical History: No Reported History Additional Past Medical History / Comment(s): Back Pain ovarian cysts History of Any Multi-Drug Resistant Organisms: None Reported Past Surgical History: Back Surgery, Section, Tubal Ligation Past Psychological History: No Psychological Hx Reported Smoking Status: Current every day smoker Past Alcohol Use History: Occasional Past Drug Use History: None Reported General Exam Limitations: no limitations General appearance: alert, in no apparent distress, other (This is a well- developed, well-nourished adult female patient in no acute distress. Vital signs upon presentation are temperature 98.5F, pulse 113, respirations 20, blood pressure 104/87, pulse ox 96% on room air.) Eye exam: Present: normal appearance, PERRL, EOMI. Absent: scleral icterus, conjunctival injection, periorbital swelling ENT exam: Present: normal exam, normal oropharynx, mucous membranes moist Respiratory exam: Present: normal lung sounds bilaterally. Absent: respiratory distress, wheezes, rales, rhonchi, stridor Cardiovascular Exam: Present: regular rate, normal rhythm, normal heart sounds. Absent: systolic murmur, diastolic murmur, rubs, gallop, clicks GI/Abdominal exam: Present: soft, tenderness (Generalized abdominal tenderness worse over the lower abdomen), normal bowel sounds. Absent: distended, guarding , rebound, rigid Back exam: Present: normal inspection. Absent: CVA tenderness (R), CVA tenderness (L) Neurological exam: Present: alert, oriented X3, CN II-XII intact Psychiatric exam: Present: normal affect, normal mood Skin exam: Present: warm, dry, intact, normal color. Absent: rash Course Vital Signs 12/30/17 12/30/17 12/30/17 18:59 20:54 22:18 Temperature 98.5 F Pulse Rate 113 H 75 100 Respiratory 20 17 17 Rate Blood Pressure 104/87 114/71 117/82 O2 Sat by Pulse 96 98 98 Oximetry Medical Decision Making - Medical Decision Making 32-year-old female patient presents the emergency department today for evaluation of pelvic pain. Physical examination did reveal generalized abdominal tenderness worse over the lower abdomen. Labs reviewed and are unremarkable. Urinalysis negative for any evidence of infection. Did perform pelvic ultrasound given patient since history of ovarian cyst and to rule out ovarian torsion, sonogram is negative. CT abdomen and pelvis was then obtained to rule out other etiologies causing her symptoms, CT was normal. I did discuss findings and results with the patient. We did discuss possibility of a ruptured ovarian cyst as a cause for her symptoms even though there is no fluid in the cul-de-sac area I did offer to perform pelvic examination to further evaluate for PID, patient refused stating that she is not concerned at all for STDs. She will be discharged home to follow-up with both her primary care physician and her net software architect for further evaluation. Return parameters discussed in detail. Patient is discharged in stable condition. She verbalizes understanding and agrees with this plan. - Lab Data Result diagrams: 12/30/17 19:30 12/30/17 19:30 Lab Results 12/30/17 12/30/17 12/30/17 Range/Units 17:50 19:30 19:30 WBC 9.9 (3.8-10.6) k/uL RBC 4.64 (3.80-5.40) m/uL Hgb 14.7 (11.4-16.0) gm/dL Hct 43.7 (34.0-46.0) % MCV 94.2 (80.0-100.0) fL MCH 31.8 (25.0-35.0) pg MCHC 33.8 (31.0-37.0) g/dL RDW 13.5 (11.5-15.5) % Plt Count 271 (150-450) k/uL Neutrophils % 63 % Lymphocytes % 27 % Monocytes % 5 % Eosinophils % 4 % Basophils % 0 % Neutrophils # 6.3 (1.3-7.7) k/uL Lymphocytes # 2.6 (1.0-4.8) k/uL Monocytes # 0.5 (0-1.0) k/uL Eosinophils # 0.4 (0-0.7) k/uL Basophils # 0.0 (0-0.2) k/uL Sodium 140 (137-145) mmol/L Potassium 4.7 (3.5-5.1) mmol/L Chloride 110 H (98-107) mmol/L Carbon Dioxide 22 (22-30) mmol/L Anion Gap 8 mmol/L BUN 17 (7-17) mg/dL Creatinine 0.62 (0.52-1.04) mg/dL Est GFR (CKD-EPI)AfAm >90 (>60 ml/min/1.73 sqM) Est GFR (CKD-EPI)NonAf >90 (>60 ml/min/1.73 sqM) Glucose 88 (74-99) mg/dL Calcium 9.3 (8.4-10.2) mg/dL Total Bilirubin 0.2 (0.2-1.3) mg/dL AST 18 (14-36) U/L ALT 27 (9-52) U/L Alkaline Phosphatase 97 (38-126) U/L Total Protein 6.4 (6.3-8.2) g/dL Albumin 4.0 (3.5-5.0) g/dL Amylase 51 (30-110) U/L Lipase 45 (23-300) U/L Urine Color Yellow Urine Appearance Cloudy H (Clear) Urine pH 5.5 (5.0-8.0) Ur Specific [place] 1.023 (1.001-1.035) Urine Protein Negative (Negative) Urine Glucose (UA) Negative (Negative) Urine Ketones Negative (Negative) Urine Blood Negative (Negative) Urine Nitrite Negative (Negative) Urine Bilirubin Negative (Negative) Urine Urobilinogen <2.0 (<2.0) mg/dL Ur Leukocyte Esterase Negative (Negative) Urine RBC 1 (0-5) /hpf Urine WBC 12 H (0-5) /hpf Ur Squamous Epith Cells 17 H (0-4) /hpf Amorphous Sediment Occasional H (None) /hpf Urine Mucus Occasional H (None) /hpf - Radiology Data Radiology results: report reviewed, image reviewed Complete pelvic ultrasound was obtained. Report was reviewed in its entirety. Impression by Dr. Villarreal shows negative transabdominal pelvic sonogram. No evidence of ovarian torsion. CT abdomen and pelvis with contrast was obtained. Report was reviewed in its entirety. Impression by Dr. Villarreal shows negative computed tomography scan of the abdomen and pelvis. No adverse change compared to old exam. Disposition Clinical Impression: Pelvic pain Disposition: HOME SELF-CARE Condition: Good Instructions: Pelvic Pain in Women (ED) Additional Instructions: Increase fluids. Take Depo-Provera for pain control. Follow-up with your net software architect for reevaluation as soon as possible. Return here immediately for any new, worsening, or concerning symptoms. Prescriptions: Ibuprofen [Motrin] 600 mg PO Q8HR PRN #30 tab PRN Reason: Pain Is patient prescribed a controlled substance at d/c from ED?: No Referrals: Caroline Servin MD [Primary Care Provider] - 1-2 days Adelso Godwin DO [Doctor of Osteopathic Medicine] - 1-2 days Time of Disposition: 23:07
[2017-12-30 19:47] LABS: Basophils % (A) 0 %; Eosinophils # (A) 0.4 k/uL (0-0.7); Eosinophils % (A) 4 %; HCT 43.7 % (34.0-46.0); HGB 14.7 gm/dL (11.4-16.0); Lymphocytes # (A) 2.6 k/uL (1.0-4.8); Lymphocytes % (A) 27 %; MCH 31.8 pg (25.0-35.0); MCHC 33.8 g/dL (31.0-37.0); MCV 94.2 fL (80.0-100.0); Mean Platelet Volume 7.4; Monocytes # (A) 0.5 k/uL (0-1.0); Monocytes % (A) 5 %; Neutrophils # (A) 6.3 k/uL (1.3-7.7); Neutrophils % (A) 63 %; Platelet Count 271 k/uL (150-450); RBC 4.64 m/uL (3.80-5.40); RDW 13.5 % (11.5-15.5); WBC 9.9 k/uL (3.8-10.6)
[2017-12-30 19:56] LABS: ALT 27 U/L (9-52); AST 18 U/L (14-36); Alkaline Phosphatase 97 U/L (38-126); Amylase 51 U/L (30-110); Anion Gap 8 mmol/L; Blood Urea Nitrogen 17 mg/dL (7-17); Calcium 9.3 mg/dL (8.4-10.2); Carbon Dioxide 22 mmol/L (22-30); Chloride 110 mmol/L (98-107); Glucose 88 mg/dL (74-99); Lipase 45 U/L (23-300); Potassium 4.7 mmol/L (3.5-5.1); Sodium 140 mmol/L (137-145); Total Bilirubin 0.2 mg/dL (0.2-1.3); Total Protein 6.4 g/dL (6.3-8.2)
--- NOTE | 2017-12-30 20:55 | US ---
EXAMINATION TYPE: US pelvis complete transvag DATE OF EXAM: 12/30/2017 COMPARISON: NONE CLINICAL HISTORY: Pain. extreme pelvic pain x 4 hours, h/o ov cysts TECHNIQUE: TV AND TA. Patient was unable to tolerate any pressure from transvaginal probe, so trans abdominal imaging was done to assess ovaries. Date of LMP: 12/16/2017 EXAM MEASUREMENTS: Uterus: 8.1 x 4.2 x 3.8 cm Endometrial Stripe: 0.9 cm Right Ovary: 2.4 x 2.3 x 1.9 cm Left Ovary: 3.0 x 2.1 x 2.3 cm 1. Uterus: Anteverted wnl 2. Endometrium: wnl 3. Right Ovary: wnl, seen only transabdominally due to reasons stated above 4. Left Ovary: wnl, seen only transabdominally due to reasons stated above Spectral, color and waveform doppler imaging shows good arterial and venous flow within the ovaries ; there is no evidence for ovarian torsion. 5. Bilateral Adnexa: wnl 6. Posterior cul-de-sac: wnl IMPRESSION: Negative transabdominal pelvic sonogram. No evidence of ovarian torsion.
[2017-12-30 20:56] VITALS: RESP 17
--- NOTE | 2017-12-30 22:12 | CT ---
EXAMINATION TYPE: CT abdomen pelvis w con DATE OF EXAM: 12/30/2017 COMPARISON: 08/07/2017 HISTORY: Right inguinal abdominal pain. CT DLP: 1565.2 mGycm Automated exposure control for dose reduction was used. TECHNIQUE: Helical acquisition of images was performed from the lung bases through the pelvis. CONTRAST: Performed without Oral Contrast and with IV Contrast, patient injected with 100ml mL of Isovue 300. FINDINGS: Lung bases are clear. There is no pleural effusion. Heart size is normal. Liver spleen pancreas gallbladder appear normal. Bile ducts are not dilated. There is no adrenal mass . Kidneys show satisfactory contrast opacification. There is no hydronephrosis. Appendix appears norm al. There is no retroperitoneal adenopathy. There is no intestinal wall thickening. There are no dila amy loops. There are clips from tubal ligation. Uterus is anteverted. Bladder distends smoothly. Lumb ar spine is intact. There is small umbilical hernia that contains fat. There is no evidence of inguin al hernia. IMPRESSION: NEGATIVE CT SCAN OF THE ABDOMEN AND PELVIS. NO ADVERSE CHANGE COMPARED TO OLD EXAM.
[2017-12-30 22:19] VITALS: BP 117/82; PULSE 100
[2017-12-30 22:45] LABS: Amorphous Sediment,Urine Occasional /hpf; Appearance,Urine Cloudy (Clear); Bilirubin,Urine Negative (Negative); Blood,Urine Negative (Negative); Color,Urine Yellow; Glucose,Urine (UA) Negative (Negative); Ketones,Urine Negative (Negative); Leukocyte Esterase,Urine Negative (Negative); Mucus,Urine Occasional /hpf; Nitrite,Urine Negative (Negative); PH, Urine 5.5 (5.0-8.0); Protein,Urine Negative (Negative); RBC,Urine 1 /hpf (0-5); Specific Gravity,Urine 1.023 (1.001-1.035); Squamous Epithelial Cell,Urine 17 /hpf (0-4); Urobilinogen,Urine <2.0 mg/dL (<2.0); WBC,Urine 12 /hpf (0-5)
== END 2017-12-30 23:10 | disposition home or self-care (01) ==
LOC: EC 18:35
DX: R10.2 Pelvic and perineal pain (principal); F17.200 Nicotine dependence, unspecified, uncomplicated; Z79.899 Other long term (current) drug therapy; Z98.51 Tubal ligation status
CPT/HCPCS: 36415; 80053; 82150; 83690; 85025; 81001; 87086; 93975; 76856; 76830; 74177; 99284; 96374; 96375; 96361 ×3; J2270; J2405; Q9967

== ENCOUNTER 2018-02-22 16:54 | Emergency (ER) | payer OTHER ==
[2018-02-22 17:12] VITALS: TEMP 98.4
[2018-02-22] MEDS ORDERED: IBUPROFEN 800 MG TAB PO STA (17:35)
[2018-02-22] MEDS ORDERED: ACETAMINOPHEN TAB 500 MG TAB PO STA (17:35)
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
[2018-02-22 18:58] VITALS: RESP 18
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
[2018-02-22 19:50] VITALS: BP 110/63; PULSE 87
== END 2018-02-22 19:48 | disposition home or self-care (01) ==
LOC: EC 16:54
DX: S13.4XXA Sprain of ligaments of cervical spine, initial encounter (principal); R07.9 Chest pain, unspecified; R10.9 Unspecified abdominal pain; F17.200 Nicotine dependence, unspecified, uncomplicated; Z98.51 Tubal ligation status; Z79.899 Other long term (current) drug therapy; V43.52XA Car driver injured in collision with other type car in traffic accident, initial encounter; Y92.89 Other specified places as the place of occurrence of the external cause
CPT/HCPCS: 70450; 71046; 72125; 99284

== ENCOUNTER 2018-02-25 22:10 | Emergency (ER) | payer OTHER ==
--- NOTE | 2018-02-25 23:13 | ED ---
Psych HPI - General Chief Complaint: Psychiatric Symptoms Stated Complaint: anxiety Time Seen by Provider: 02/25/18 22:33 Source: patient Mode of arrival: ambulatory - History of Present Illness Initial Comments: : Is a 32-year-old female with a history of anxiety who presents the emergency department today for psychiatric evaluation. Patient reports that she is not felt well all day today. She reports that earlier in the day she had a complete conversation with her best friend all in her vehicle, however during the conversation she noticed that her best friend wasn't in the vehicle that she been speaking to the chair beside her. Patient reports that she just feels off. She is having visual and hallucinations. She reports she's hearing voices. Patient reports that aside from a history of anxiety for which she's been prescribed by mouth Ativan she has no psychiatric history. She denies any history of psychiatric hospitalization in the past. She denies any alcohol ingestion or recreational drug use. Denies any suicidal or homicidal ideation. - Related Data Home Medications Medication Instructions Recorded Confirmed Ibuprofen [Motrin Ib] 800 mg PO TID PRN 02/25/18 02/25/18 Sertraline [Zoloft] 100 mg PO HS 02/25/18 02/25/18 diphenhydrAMINE HCL [Benadryl] 75 mg PO DAILY PRN 02/25/18 02/25/18 Allergies Allergy/AdvReac Type Severity Reaction Status Date / Time No Known Allergies Allergy Verified 02/25/18 22:28 Review of Systems ROS Statement: Those systems with pertinent positive or pertinent negative responses have been documented in the HPI. ROS Other: All systems not noted in ROS Statement are negative. Past Medical History Past Medical History: No Reported History Additional Past Medical History / Comment(s): Back Pain ovarian cysts, History of Any Multi-Drug Resistant Organisms: None Reported Past Surgical History: Back Surgery, Section, Tubal Ligation Past Psychological History: Anxiety Smoking Status: Current every day smoker Past Alcohol Use History: Occasional Past Drug Use History: None Reported General Exam - General Exam Comments Initial Comments: Physical Exam GENERAL: Patient is well-developed and well-nourished. Patient is nontoxic and well- hydrated and is in no distress. HENT: Normocephalic, Atraumatic. Poor dentition, multiple dental caries EYES: PERRL, EOMI PULMONARY: Unlabored respirations. No audible rales rhonchi or wheezing was noted. CARDIOVASCULAR: There is a regular rate and rhythm without any murmurs gallops or rubs. ABDOMEN: Soft and nontender with normal bowel sounds. SKIN: Skin is clear with no lesions or rashes and otherwise unremarkable. : Deferred NEUROLOGIC: Patient is alert and oriented x3. Moving all extremities spontaneously MUSCULOSKELETAL: Normal extremities with adequate strength and full range of motion. No lower extremity swelling or edema. No calf tenderness. PSYCHIATRIC: Anxious, having auditory and visual hallucinations No paranoia, no suicidal or homicidal ideation Limitations: no limitations Limitations: no limitations Course Vital Signs 02/25/18 02/25/18 22:12 23:56 Temperature 98.6 F Pulse Rate 120 H Respiratory 17 18 Rate Blood Pressure 118/78 O2 Sat by Pulse 98 Oximetry Medical Decision Making - Medical Decision Making The patient was seen and evaluated, patient complaining of anxiety, reports that she's been having conversations with people who aren't there. Breath alcohol is negative. Patient is medically cleared for evaluation by psychiatry. Valuate over the EPS nurse, she admitted to the nurse that she's been very depressed lately. She states that she hasn't seen her 2 sons for 2 weeks because they will speak to her they're staying with their biological father from whom she is currently . She has arty seen her primary care physician about this and establish follow-up therapy. In addition she's been prescribed when necessary Ativan to help her with anxiety. At this time the patient denies any suicidal or homicidal ideations. The patient has no intent to harm or self. The patient has close outpatient follow-up. The patient contracts for safety. Outpatient resources were provided. Return parameters were discussed with patient was discharged home in stable condition. - Lab Data Lab Results 02/25/18 02/25/18 Range/Units 22:50 22:50 Urine Color Yellow Urine Appearance Cloudy H (Clear) Urine pH 6.0 (5.0-8.0) Ur Specific [place] 1.017 (1.001-1.035) Urine Protein Trace H (Negative) Urine Glucose (UA) Negative (Negative) Urine Ketones Negative (Negative) Urine Blood Negative (Negative) Urine Nitrite Negative (Negative) Urine Bilirubin Negative (Negative) Urine Urobilinogen <2.0 (<2.0) mg/dL Ur Leukocyte Esterase Small H (Negative) Urine RBC 1 (0-5) /hpf Urine WBC 4 (0-5) /hpf Ur Squamous Epith Cells 7 H (0-4) /hpf Urine Mucus Rare H (None) /hpf Urine HCG, Qual Not Detected (Not Detectd) Urine Opiates Screen Not Detected (NotDetected) Ur Oxycodone Screen Not Detected (NotDetected) Urine Methadone Screen Not Detected (NotDetected) Ur Propoxyphene Screen Not Detected (NotDetected) Ur Barbiturates Screen Not Detected (NotDetected) U Tricyclic Antidepress Detected H (NotDetected) Ur Phencyclidine Scrn Not Detected (NotDetected) Ur Amphetamines Screen Not Detected (NotDetected) U Methamphetamines Scrn Not Detected (NotDetected) U Benzodiazepines Scrn Detected H (NotDetected) Urine Cocaine Screen Not Detected (NotDetected) U Marijuana (THC) Screen Not Detected (NotDetected) Disposition Clinical Impression: Depression Disposition: HOME SELF-CARE Condition: Good Instructions: Depression (ED) Is patient prescribed a controlled substance at d/c from ED?: No Referrals: Caroline Servin MD [Primary Care Provider] - 1-2 days Time of Disposition: 01:38
[2018-02-25 23:27] LABS: Appearance,Urine Cloudy (Clear); Bilirubin,Urine Negative (Negative); Blood,Urine Negative (Negative); Color,Urine Yellow; Glucose,Urine (UA) Negative (Negative); Ketones,Urine Negative (Negative); Leukocyte Esterase,Urine Small (Negative); Mucus,Urine Rare /hpf; Nitrite,Urine Negative (Negative); Protein,Urine Trace (Negative); RBC,Urine 1 /hpf (0-5); Specific Gravity,Urine 1.017 (1.001-1.035); Squamous Epithelial Cell,Urine 7 /hpf (0-4); Urobilinogen,Urine <2.0 mg/dL (<2.0); WBC,Urine 4 /hpf (0-5)
[2018-02-25 23:29] LABS: Amphetamine Screen,Urine Not Detected (NotDetected); Barbiturate Screen,Urine Not Detected (NotDetected); Benzodiazepines Screen,Urine Detected (NotDetected); Cocaine Screen,Urine Not Detected (NotDetected); Methadone Screen, Urine Not Detected (NotDetected); Opiate Screen,Urine Not Detected (NotDetected); Oxycodone Screen, Urine Not Detected (NotDetected); Phencyclidine Screen,Urine Not Detected (NotDetected); Tricyclic Antidepressant,Urine Detected (NotDetected); Urn Cannabinoid Scrn Not Detected (NotDetected)
[2018-02-26 01:13] VITALS: RESP 18
[2018-02-26 01:49] VITALS: BP 121/89; PULSE 81; TEMP 98.2
== END 2018-02-26 01:47 | disposition home or self-care (01) ==
LOC: EC 22:10
DX: F32.9 Major depressive disorder, single episode, unspecified (principal); F41.9 Anxiety disorder, unspecified; R44.0 Auditory hallucinations; R44.1 Visual hallucinations; F17.200 Nicotine dependence, unspecified, uncomplicated; Z79.899 Other long term (current) drug therapy
CPT/HCPCS: 80306; 81001; 81025; 99285

== ENCOUNTER 2018-03-31 20:39 | Emergency (ER) | payer OTHER ==
[2018-03-31 21:00] VITALS: TEMP 98.4
[2018-03-31] MEDS ORDERED: SODIUM CHLORIDE 0.9% 1,000 ML IV STA (21:41)
--- NOTE | 2018-03-31 22:21 | XR ---
EXAMINATION TYPE: XR chest 2V DATE OF EXAM: 03/31/2018 COMPARISON: 02/22/2018 HISTORY: Neck pain TECHNIQUE: Frontal and lateral views of the chest are obtained. FINDINGS: Heart and mediastinum are normal. Lungs are clear. Diaphragm is normal. Bony thorax appear s normal. IMPRESSION: Normal chest. There is improved aeration of the lung bases compared to last exam.
[2018-03-31 22:22] LABS: Appearance,Urine Turbid (Clear); Bilirubin,Urine 1+ (Negative); Blood,Urine Negative (Negative); Color,Urine Dark Yellow; Glucose,Urine (UA) Negative (Negative); Ketones,Urine Trace (Negative); Leukocyte Esterase,Urine Small (Negative); Mucus,Urine Many /hpf; Nitrite,Urine Negative (Negative); Protein,Urine 1+ (Negative); RBC,Urine 11 /hpf (0-5); Specific Gravity,Urine 1.032 (1.001-1.035); Squamous Epithelial Cell,Urine 42 /hpf (0-4); WBC,Urine 15 /hpf (0-5)
[2018-03-31 22:23] LABS: Basophils # (A) 0.1 k/uL (0-0.2); Basophils % (A) 1 %; Eosinophils # (A) 0.4 k/uL (0-0.7); Eosinophils % (A) 3 %; HCT 45.6 % (34.0-46.0); HGB 14.9 gm/dL (11.4-16.0); Lymphocytes # (A) 2.8 k/uL (1.0-4.8); Lymphocytes % (A) 26 %; MCH 30.5 pg (25.0-35.0); MCHC 32.7 g/dL (31.0-37.0); MCV 93.3 fL (80.0-100.0); Mean Platelet Volume 7.3; Monocytes # (A) 0.5 k/uL (0-1.0); Monocytes % (A) 4 %; Neutrophils % (A) 65 %; Platelet Count 285 k/uL (150-450); RBC 4.88 m/uL (3.80-5.40); RDW 13.4 % (11.5-15.5); WBC 10.8 k/uL (3.8-10.6)
[2018-03-31 22:27] LABS: ALT 15 U/L (9-52); AST 14 U/L (14-36); Alkaline Phosphatase 85 U/L (38-126); Amphetamine Screen,Urine Not Detected (NotDetected); Anion Gap 8 mmol/L; Barbiturate Screen,Urine Not Detected (NotDetected); Benzodiazepines Screen,Urine Not Detected (NotDetected); Blood Urea Nitrogen 12 mg/dL (7-17); Calcium 9.7 mg/dL (8.4-10.2); Carbon Dioxide 24 mmol/L (22-30); Chloride 107 mmol/L (98-107); Cocaine Screen,Urine Not Detected (NotDetected); Glucose 130 mg/dL (74-99); Methadone Screen, Urine Not Detected (NotDetected); Opiate Screen,Urine Not Detected (NotDetected); Oxycodone Screen, Urine Not Detected (NotDetected); Phencyclidine Screen,Urine Not Detected (NotDetected); Potassium 4.3 mmol/L (3.5-5.1); Sodium 139 mmol/L (137-145); Total Bilirubin 0.3 mg/dL (0.2-1.3); Total Protein 6.6 g/dL (6.3-8.2); Tricyclic Antidepressant,Urine Detected (NotDetected); Urn Cannabinoid Scrn Not Detected (NotDetected)
[2018-03-31 22:34] LABS: Creatine Kinase 31 U/L (30-135)
--- NOTE | 2018-03-31 22:38 | ED ---
Arrhythmia/Palpitations HPI - General Chief Complaint: Arrhythmia/Palpitations Stated Complaint: high heart rate Time Seen by Provider: 03/31/18 21:41 Source: patient, RN notes reviewed Mode of arrival: ambulatory Limitations: no limitations - History of Present Illness Initial Comments: 32-year-old female presents emergency from chief complaint of palpitations. Patient states she's been having ongoing palpitations have worsen over the last 1 month. Patient states that she has known her heart rate has been elevated secondary to being refused to do any plasma. She states her heart rate is usually in the 120s to 130s. She has not seen her PCP or cardiology for this. She states when it starts racing occasionally does cause some discomfort. Patient states tonight she came in because she had an argument symptoms were more pronounced she states her heart was racing and felt like he was pounding out of her chest. Patient denies any prior cardiac disease including hypertension, hyperlipidemia. Denies any history of thyroid disease. Patient states she does not use any illicit drug use she is a daily smoker. - Related Data Home Medications Medication Instructions Recorded Confirmed Ibuprofen [Motrin Ib] 800 mg PO TID PRN 02/25/18 02/25/18 Sertraline [Zoloft] 100 mg PO HS 02/25/18 02/25/18 diphenhydrAMINE HCL [Benadryl] 75 mg PO DAILY PRN 02/25/18 02/25/18 Allergies Allergy/AdvReac Type Severity Reaction Status Date / Time No Known Allergies Allergy Verified 03/31/18 21:00 Review of Systems ROS Statement: Those systems with pertinent positive or pertinent negative responses have been documented in the HPI. ROS Other: All systems not noted in ROS Statement are negative. Past Medical History Past Medical History: No Reported History Additional Past Medical History / Comment(s): Back Pain ovarian cysts, History of Any Multi-Drug Resistant Organisms: None Reported Past Surgical History: Back Surgery, Section, Tubal Ligation Past Psychological History: Anxiety Smoking Status: Current every day smoker Past Alcohol Use History: Occasional Past Drug Use History: None Reported General Exam Limitations: no limitations General appearance: alert, in no apparent distress Head exam: Present: atraumatic, normocephalic, normal inspection ENT exam: Present: normal exam, mucous membranes moist Neck exam: Present: normal inspection. Absent: tenderness, meningismus, lymphadenopathy Respiratory exam: Present: normal lung sounds bilaterally. Absent: respiratory distress, wheezes, rales, rhonchi, stridor Cardiovascular Exam: Present: normal rhythm, tachycardia, normal heart sounds. Absent: systolic murmur, diastolic murmur, rubs, gallop, clicks Neurological exam: Present: alert, oriented X3, CN II-XII intact Skin exam: Present: warm, dry, intact, normal color. Absent: rash Course Vital Signs 03/31/18 03/31/18 03/31/18 20:57 22:00 23:09 Temperature 98.4 F Pulse Rate 129 H 110 H 95 Respiratory 17 16 18 Rate Blood Pressure 116/89 100/60 110/50 O2 Sat by Pulse 96 100 99 Oximetry EKG Findings - EKG Comments: EKG Findings:: EKG performed at 21:17 sinus tachycardia with rate of 113 NC 126 QRS 82 QT/QTC 322/441 Medical Decision Making - Medical Decision Making 33-year-old presents emergency room for palpitations. Patient's heart rate has improved in emergency department. Patient had lab work, EKG, urinalysis and drug screen. This all essentially unremarkable. Patient may have some underlying tachycardia and which she needs to be evaluated by electric shaver mechanic. Patient provided on-call cardiology. Patient also had increased symptoms today secondary to argument. - Lab Data Result diagrams: 03/31/18 21:50 03/31/18 21:50 Lab Results 03/31/18 03/31/18 03/31/18 Range/Units 21:50 21:50 21:50 WBC 10.8 H (3.8-10.6) k/uL RBC 4.88 (3.80-5.40) m/uL Hgb 14.9 (11.4-16.0) gm/dL Hct 45.6 (34.0-46.0) % MCV 93.3 (80.0-100.0) fL MCH 30.5 (25.0-35.0) pg MCHC 32.7 (31.0-37.0) g/dL RDW 13.4 (11.5-15.5) % Plt Count 285 (150-450) k/uL Neutrophils % 65 % Lymphocytes % 26 % Monocytes % 4 % Eosinophils % 3 % Basophils % 1 % Neutrophils # 7.0 (1.3-7.7) k/uL Lymphocytes # 2.8 (1.0-4.8) k/uL Monocytes # 0.5 (0-1.0) k/uL Eosinophils # 0.4 (0-0.7) k/uL Basophils # 0.1 (0-0.2) k/uL PT (9.0-12.0) sec INR (<1.2) APTT (22.0-30.0) sec Sodium 139 (137-145) mmol/L Potassium 4.3 (3.5-5.1) mmol/L Chloride 107 (98-107) mmol/L Carbon Dioxide 24 (22-30) mmol/L Anion Gap 8 mmol/L BUN 12 (7-17) mg/dL Creatinine 0.56 (0.52-1.04) mg/dL Est GFR (CKD-EPI)AfAm >90 (>60 ml/min/1.73 sqM) Est GFR (CKD-EPI)NonAf >90 (>60 ml/min/1.73 sqM) Glucose 130 H (74-99) mg/dL Calcium 9.7 (8.4-10.2) mg/dL Magnesium 2.0 (1.6-2.3) mg/dL Total Bilirubin 0.3 (0.2-1.3) mg/dL AST 14 (14-36) U/L ALT 15 (9-52) U/L Alkaline Phosphatase 85 (38-126) U/L Total Creatine Kinase 31 (30-135) U/L CK-MB (CK-2) <0.2 (0.0-2.4) ng/mL CK-MB (CK-2) Rel Index Troponin I <0.012 (0.000-0.034) ng/mL Total Protein 6.6 (6.3-8.2) g/dL Albumin 4.0 (3.5-5.0) g/dL Urine Color Urine Appearance (Clear) Urine pH (5.0-8.0) Ur Specific [place] (1.001-1.035) Urine Protein (Negative) Urine Glucose (UA) (Negative) Urine Ketones (Negative) Urine Blood (Negative) Urine Nitrite (Negative) Urine Bilirubin (Negative) Urine Urobilinogen (<2.0) mg/dL Ur Leukocyte Esterase (Negative) Urine RBC (0-5) /hpf Urine WBC (0-5) /hpf Ur Squamous Epith Cells (0-4) /hpf Urine Mucus (None) /hpf Urine Opiates Screen (NotDetected) Ur Oxycodone Screen (NotDetected) Urine Methadone Screen (NotDetected) Ur Propoxyphene Screen (NotDetected) Ur Barbiturates Screen (NotDetected) U Tricyclic Antidepress (NotDetected) Ur Phencyclidine Scrn (NotDetected) Ur Amphetamines Screen (NotDetected) U Methamphetamines Scrn (NotDetected) U Benzodiazepines Scrn (NotDetected) Urine Cocaine Screen (NotDetected) U Marijuana (THC) Screen (NotDetected) 03/31/18 03/31/18 Range/Units 21:50 21:50 WBC (3.8-10.6) k/uL RBC (3.80-5.40) m/uL Hgb (11.4-16.0) gm/dL Hct (34.0-46.0) % MCV (80.0-100.0) fL MCH (25.0-35.0) pg MCHC (31.0-37.0) g/dL RDW (11.5-15.5) % Plt Count (150-450) k/uL Neutrophils % % Lymphocytes % % Monocytes % % Eosinophils % % Basophils % % Neutrophils # (1.3-7.7) k/uL Lymphocytes # (1.0-4.8) k/uL Monocytes # (0-1.0) k/uL Eosinophils # (0-0.7) k/uL Basophils # (0-0.2) k/uL PT 9.9 (9.0-12.0) sec INR 1.0 (<1.2) APTT 25.1 (22.0-30.0) sec Sodium (137-145) mmol/L Potassium (3.5-5.1) mmol/L Chloride (98-107) mmol/L Carbon Dioxide (22-30) mmol/L Anion Gap mmol/L BUN (7-17) mg/dL Creatinine (0.52-1.04) mg/dL Est GFR (CKD-EPI)AfAm (>60 ml/min/1.73 sqM) Est GFR (CKD-EPI)NonAf (>60 ml/min/1.73 sqM) Glucose (74-99) mg/dL Calcium (8.4-10.2) mg/dL Magnesium (1.6-2.3) mg/dL Total Bilirubin (0.2-1.3) mg/dL AST (14-36) U/L ALT (9-52) U/L Alkaline Phosphatase (38-126) U/L Total Creatine Kinase (30-135) U/L CK-MB (CK-2) (0.0-2.4) ng/mL CK-MB (CK-2) Rel Index Troponin I (0.000-0.034) ng/mL Total Protein (6.3-8.2) g/dL Albumin (3.5-5.0) g/dL Urine Color Dark Yellow Urine Appearance Turbid H (Clear) Urine pH 6.0 (5.0-8.0) Ur Specific [place] 1.032 (1.001-1.035) Urine Protein 1+ H (Negative) Urine Glucose (UA) Negative (Negative) Urine Ketones Trace H (Negative) Urine Blood Negative (Negative) Urine Nitrite Negative (Negative) Urine Bilirubin 1+ H (Negative) Urine Urobilinogen 6.0 (<2.0) mg/dL Ur Leukocyte Esterase Small H (Negative) Urine RBC 11 H (0-5) /hpf Urine WBC 15 H (0-5) /hpf Ur Squamous Epith Cells 42 H (0-4) /hpf Urine Mucus Many H (None) /hpf Urine Opiates Screen Not Detected (NotDetected) Ur Oxycodone Screen Not Detected (NotDetected) Urine Methadone Screen Not Detected (NotDetected) Ur Propoxyphene Screen Not Detected (NotDetected) Ur Barbiturates Screen Not Detected (NotDetected) U Tricyclic Antidepress Detected H (NotDetected) Ur Phencyclidine Scrn Not Detected (NotDetected) Ur Amphetamines Screen Not Detected (NotDetected) U Methamphetamines Scrn Not Detected (NotDetected) U Benzodiazepines Scrn Not Detected (NotDetected) Urine Cocaine Screen Not Detected (NotDetected) U Marijuana (THC) Screen Not Detected (NotDetected) Disposition Clinical Impression: Palpitations, Tachycardia, Anxiety Disposition: HOME SELF-CARE Condition: Stable Instructions: Heart Palpitations (ED) Additional Instructions: Please return to the Emergency Department if symptoms worsen or any other concerns. Is patient prescribed a controlled substance at d/c from ED?: No Referrals: Caroline Servin MD [Primary Care Provider] - 1-2 days Sulaiman Ramos MD [STAFF PHYSICIAN] - 1-2 days Time of Disposition: 23:24
[2018-03-31 22:39] LABS: Partial Thromboplastin Time 25.1 sec (22.0-30.0); Prothrombin Time 9.9 sec (9.0-12.0)
[2018-03-31 22:46] LABS: Creatine Kinase MB <0.2 ng/mL (0.0-2.4); Troponin I <0.012 ng/mL (0.000-0.034)
[2018-03-31 23:09] VITALS: BP 110/50; PULSE 95; RESP 18
--- NOTE | 2018-03-31 23:21 | US ---
EXAMINATION TYPE: US venous doppler duplex LE LT DATE OF EXAM: 03/31/2018 11:00 PM COMPARISON: NONE CLINICAL HISTORY: Pain. Racing heart, patient states she keeps getting a sugey horse in left leg SIDE PERFORMED: Left TECHNIQUE: The lower extremity deep venous system is examined utilizing real time linear array sonog nakit with graded compression, doppler sonography and color-flow sonography. VESSELS IMAGED: External Iliac Vein (EIV) Common Femoral Vein Deep Femoral Vein Greater Saphenous Vein * Femoral Vein Popliteal Vein Small Saphenous Vein * Proximal Calf Veins (* superficial vessels) Left Leg: Appears negative for DVT IMPRESSION: Normal exam. No evidence of deep venous thrombosis in the left leg.
== END 2018-03-31 23:31 | disposition home or self-care (01) ==
LOC: EC 20:39
DX: F41.9 Anxiety disorder, unspecified (principal); F17.200 Nicotine dependence, unspecified, uncomplicated; Z79.899 Other long term (current) drug therapy
CPT/HCPCS: 36415; 71046; 80053; 80306; 81001; 82550; 82553; 83735; 84484; 85025; 85610; 85730; 93005; 96360; 99285

== ENCOUNTER 2018-07-06 12:40 | Emergency (ER) | payer OTHER ==
[2018-07-06 12:54] VITALS: BP 148/88; PULSE 98; RESP 16; TEMP 98.5
[2018-07-06] MEDS ORDERED: PROPARACAINE 0.5% OPHTH DROPS 15 ML BTL ONE (13:34)
[2018-07-06] MEDS ORDERED: PROPARACAINE 0.5% OPHTH DROPS 15 ML BTL RIGHT EYE STA (14:28)
[2018-07-06] MEDS ORDERED: TOBRAMYCIN 0.3% OPHTH OINT 3.5 GM TUBE RIGHT EYE STA (15:03)
--- NOTE | 2018-07-06 15:05 | ED ---
Eye Problem HPI - General Chief complaint: Eye Problems Stated complaint: eye pain/swelling Time Seen by Provider: 07/06/18 13:12 Source: patient Mode of arrival: ambulatory Limitations: no limitations - History of Present Illness Initial comments: 32-year-old female presenting today for chief complaint of right eye pain times one day. Patient states she was washing her face with [employer] body scrub when she got the upper Beats in her eyes. She states she merely rinse it out and rubbed however she thinks she scratched her eye. Patient states she has had increased right eye pain and photophobia since this has occurred. Patient denies any headache nausea or vomiting, diplopia. Patient states it feels as though she has a cut I denies any discharge. Patient denies any contact lens use. Patient states she does wear glasses. Patient states it takes a well- appearing her right eye to focus, she states it hall. Remaining review of systems negative upon arrival, patient denies any recent fever, chills, shortness of breath, chest pain, back pain, abdominal pain, nausea or vomiting, numbness or tingling, dysuria or hematuria, constipation or diarrhea, or any other complaints. - Related Data Home Medications Medication Instructions Recorded Confirmed Ibuprofen [Motrin Ib] 800 mg PO Q6H PRN 07/06/18 07/06/18 Previous Rx's Medication Instructions Recorded Tobramycin 0.3% Ophth Soln [Tobrex 1 drop RIGHT EYE Q1H 7 Days #1 07/06/18 0.3% Ophth Soln] bottle Allergies Allergy/AdvReac Type Severity Reaction Status Date / Time No Known Allergies Allergy Verified 07/06/18 13:33 Review of Systems ROS Statement: Those systems with pertinent positive or pertinent negative responses have been documented in the HPI. ROS Other: All systems not noted in ROS Statement are negative. Past Medical History Past Medical History: No Reported History Additional Past Medical History / Comment(s): Back Pain ovarian cysts, History of Any Multi-Drug Resistant Organisms: None Reported Past Surgical History: Back Surgery, Section, Tubal Ligation Past Psychological History: Anxiety Smoking Status: Current every day smoker Past Alcohol Use History: Occasional Past Drug Use History: None Reported General Exam - General Exam Comments Initial Comments: General: The patient is awake and alert, in no distress, and does not appear acutely ill. Eye: +3 mm pupils are equal, round and reactive to light, extra-ocular movements are intact. No APD No nystagmus. Mild right eye conjunctival injection. Normal conjuctiva of the left eye. No signs of icterus. Lamp examination reveals no cell and flare. There is no obvious corneal ulcer. Patient was photophobic, this resolved with administration of proparacaine. Fluorescein exam revealed significant up take at the 6 o'clock position of the lower cornea. Over the lower aspect iris. Negative Germaine sign. No ulceration at this time, no baca color. VF intact to confrontation. No evidence of foreign body. Ears, nose, mouth and throat: There are moist mucous membranes and no oral lesions. Neck: The neck is supple, there is no tenderness or JVD. Cardiovascular: There is a regular rate and rhythm. No murmur, rub or gallop is appreciated. Respiratory: Lungs are clear to auscultation, respirations are non-labored, breath sounds are equal. No wheezes, stridor, rales, or rhonchi. Musculoskeletal: Normal ROM, no tenderness. Strength 5/5. Sensation intact. Pulses equal bilaterally 2+. Neurological: A&O x 3. CN II-XII intact, There are no obvious motor or sensory deficits. Coordination appears grossly intact. Speech is normal. Skin: Skin is warm and dry and no rashes or lesions are noted. Psychiatric: Cooperative, appropriate mood & affect, normal judgment. Limitations: no limitations Course Vital Signs 07/06/18 12:51 Temperature 98.5 F Pulse Rate 98 Respiratory 16 Rate Blood Pressure 148/88 O2 Sat by Pulse 98 Oximetry Medical Decision Making - Medical Decision Making 32-year-old female presenting today for chief complaint of right eye pain after foreign body. No evidence foreign body and fluorescein exam however there is significant corneal abrasion concern for developing ulcer. No obvious corneal ulcer at this time. Patient is not a contact lens user. Patient is on tobramycin every hour for 24 hours with 12-24 hour ophthalmology follow-up, I stressed the importance of ophthalmology follow-up, patient verbalized understanding stating she will call as soon as she leaves the emergency department. I discussed the case attending provider Dr. Lucoi was agreeable discharge. Patient given prescription in the emergency department as well as initial dosing of tobramycin and sister in stable condition appearing well. I did discuss of return parameters with patient who verbalized understanding. Patient denied questions at this time. Disposition Clinical Impression: Corneal abrasion Disposition: HOME SELF-CARE Condition: Good Instructions (If sedation given, give patient instructions): Corneal Abrasion ( ED), Corneal Ulcer (ED) Additional Instructions: Please use medication as discussed. Please follow-up with TODAY OR FIRST THING TOMORROW MORNING WITH DR. MORALES or ophthalmology. Please return to emergency room if the symptoms increase or worsen or for any other concerns. Prescriptions: Tobramycin 0.3% Ophth Soln [Tobrex 0.3% Ophth Soln] 1 drop RIGHT EYE Q1H 7 Days #1 bottle Is patient prescribed a controlled substance at d/c from ED?: No Referrals: Caroline Servin MD [Primary Care Provider] - 1-2 days Jorge Morales MD [STAFF PHYSICIAN] - 1-2 days Time of Disposition: 15:06
[2018-07-06] MEDS ORDERED: ACET/COD 300 MG/30 MG STARTER PACK 6 TAB BTL PO STA (15:07)
== END 2018-07-06 15:46 | disposition home or self-care (01) ==
LOC: EC 12:40
DX: S05.01XA Injury of conjunctiva and corneal abrasion without foreign body, right eye, initial encounter (principal); F17.200 Nicotine dependence, unspecified, uncomplicated; X58.XXXA Exposure to other specified factors, initial encounter
CPT/HCPCS: 99283

== ENCOUNTER 2018-10-25 16:01 | Emergency (ER) | payer OTHER ==
[2018-10-25 16:05] VITALS: BP 125/79; PULSE 90; RESP 16; TEMP 98
[2018-10-25] MEDS ORDERED: PROPARACAINE 0.5% OPHTH DROPS 15 ML BTL RIGHT EYE STA (16:15)
[2018-10-25] MEDS ORDERED: MOXIFLOXACIN HCL 0.5% DROPS 3 ML BTL RIGHT EYE ONE (17:07)
--- NOTE | 2018-10-25 17:17 | ED ---
Eye Problem HPI - General Chief complaint: Eye Problems Stated complaint: Eye Problems Time Seen by Provider: 10/25/18 16:15 Source: patient Mode of arrival: ambulatory Limitations: no limitations - History of Present Illness Initial comments: 32-year-old female presenting today for chief complaint of right eye pain. Patient states her mother and she has been crying/rubbing and wiping her eye more frequently then usual. He states his history of corneal ulcer. Denies any contact lens use. Patient states she wears glasses. Patient states he did not know the etiology of her previous corneal ulcer however it healed with topical antibiotics. Patient states that she began developing irritation and sensitivity to lights is similar to when she had a corneal ulcer in the past. Patient states the symptoms progressed from yesterday and today she is unable to open her eye and bright lights secondary to the pain. Patient states that her vision is blurred secondary to watering. Patient denies a fever chills night sweats or erythema of the surrounding eye. Remaining review of systems negative upon arrival patient appears well signs of acute distress. - Related Data Home Medications Medication Instructions Recorded Confirmed Ibuprofen [Motrin Ib] 800 mg PO Q6H PRN 07/06/18 07/06/18 Previous Rx's Medication Instructions Recorded Tobramycin 0.3% Ophth Soln [Tobrex 1 drop RIGHT EYE Q1H 7 Days #1 07/06/18 0.3% Ophth Soln] bottle Moxifloxacin [Vigamox 0.3%] 1 drop RIGHT EYE Q4H 7 Days #1 10/25/18 bottle Allergies Allergy/AdvReac Type Severity Reaction Status Date / Time No Known Allergies Allergy Verified 10/25/18 16:05 Review of Systems ROS Statement: Those systems with pertinent positive or pertinent negative responses have been documented in the HPI. ROS Other: All systems not noted in ROS Statement are negative. Past Medical History Past Medical History: No Reported History Additional Past Medical History / Comment(s): Back Pain ovarian cysts, History of Any Multi-Drug Resistant Organisms: None Reported Past Surgical History: Back Surgery, Section, Tubal Ligation Past Psychological History: Anxiety Smoking Status: Current every day smoker Past Alcohol Use History: Occasional Past Drug Use History: None Reported General Exam - General Exam Comments Initial Comments: General: The patient is awake and alert, in no distress, and does not appear acutely ill. Eye: +3 mm pupils are equal, round and reactive to light, extra-ocular movements are intact. No nystagmus. There is normal conjunctiva of the left eye, erythema of the right eye. No signs of icterus. No pain with EOM. Very light baca ulcer on exam 6-7o clock position. Was seen was taken up in the area of ulceration. There is no significant conjunctival injection Ears, nose, mouth and throat: There are moist mucous membranes and no oral lesions. Neck: The neck is supple, there is no tenderness or JVD. Cardiovascular: There is a regular rate and rhythm. No murmur, rub or gallop is appreciated. Respiratory: Lungs are clear to auscultation, respirations are non-labored, breath sounds are equal. No wheezes, stridor, rales, or rhonchi. Musculoskeletal: Normal ROM, no tenderness. Strength 5/5. Sensation intact. Pulses equal bilaterally 2+. Neurological: A&O x 3. CN II-XII intact, There are no obvious motor or sensory deficits. Coordination appears grossly intact. Speech is normal. Skin: Skin is warm and dry and no rashes or lesions are noted. Psychiatric: Cooperative, appropriate mood & affect, normal judgment. Limitations: no limitations Course Vital Signs 10/25/18 16:02 Temperature 98 F Pulse Rate 90 Respiratory 16 Rate Blood Pressure 125/79 O2 Sat by Pulse 98 Oximetry Medical Decision Making - Medical Decision Making 32-year-old female presented for right eye pain. States is similar to a corneal ulcer she has had in the past. Ulcers evident on examination. At the 6 to 7 o'clock position. I contacted on-call procurement consultant Dr. De La Torre who recommended Vigamox q4h with outpatient follow-up on Saturday. Patient is agreeable to the plan is aware of the importance of adherence to medication regimen and return for any worsening symptoms. Patient has very mild swelling on the right eye she states she has been rubbing her eye. I do feel this is due to patient rubbing eye, is not here to be a cellulitis at this time. Patient was educated on periorbital orbital cellulitis and we discussed return parameters. She verbalized understanding importance of return. I discussed the case with attending provider Dr. Marc who is agreeable with care plan and discharge at this time. Disposition Clinical Impression: Corneal ulcer, Pain, eye, right Disposition: HOME SELF-CARE Condition: Good Instructions (If sedation given, give patient instructions): Corneal Ulcer (ED) Additional Instructions: Please use medication as discussed. Please follow-up with ophthalmology on Saturday as discussed please call Dr. Dixon's office at 8AM on Saturday. Please return to emergency room if the symptoms increase or worsen or for any other concerns. If develop pain with movement of eyes, eyes swell/increasing surrounding redness immediate return to the ER Prescriptions: Moxifloxacin [Vigamox 0.3%] 1 drop RIGHT EYE Q4H 7 Days #1 bottle Is patient prescribed a controlled substance at d/c from ED?: No Referrals: Caroline Servin MD [Primary Care Provider] - 1-2 days Nirmal Dixon MD [STAFF PHYSICIAN] - 1-2 days Time of Disposition: 17:16
[2018-10-25] MEDS ORDERED: CLINDAMYCIN 150 MG CAP PO STA (17:20)
== END 2018-10-25 18:03 | disposition home or self-care (01) ==
LOC: EC 16:01
DX: H16.001 Unspecified corneal ulcer, right eye (principal); F17.200 Nicotine dependence, unspecified, uncomplicated
CPT/HCPCS: 99283

== ENCOUNTER 2020-06-07 21:10 | Emergency (ER) | payer OTHER ==
[2020-06-07 21:16] VITALS: RESP 18; TEMP 98
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
[2020-06-07] MEDS ORDERED: Acetaminophen-Codeine 300-30mg TAB PO STA (21:56)
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
[2020-06-07] MEDS ORDERED: ACET/COD 300 MG/30 MG STARTER PACK 6 TAB BTL PO STA (23:49)
[2020-06-07 23:55] VITALS: BP 108/60; PULSE 80
== END 2020-06-07 23:55 | disposition home or self-care (01) ==
LOC: EC 21:10
DX: S00.03XA Contusion of scalp, initial encounter (principal); S00.12XA Contusion of left eyelid and periocular area, initial encounter; S20.219A Contusion of unspecified front wall of thorax, initial encounter; S60.011A Contusion of right thumb without damage to nail, initial encounter; R10.13 Epigastric pain; M54.2 Cervicalgia; F17.200 Nicotine dependence, unspecified, uncomplicated; Z98.51 Tubal ligation status; Y04.2XXA Assault by strike against or bumped into by another person, initial encounter
CPT/HCPCS: 81025; 73110; 73130; 72125; 70450; 71260; 74177; 99284; Q9967